=== PATIENT | female | born 1970 | race Caucasian/White ===

== ENCOUNTER → 2017-07-24 | Outpatient (REF) | payer BC | LOC: M SFHCLERA 11:37 | PROVIDERS: ATTEND Dermatology | DX: D21.0 Benign neoplasm of connective and other soft tissue of head, face and neck (principal); D23.61 Other benign neoplasm of skin of right upper limb, including shoulder ==

== ENCOUNTER → 2017-11-24 | Outpatient (CLI) | payer BC | LOC: M ADAMS 10:18 | DX: Z00.00 Encounter for general adult medical examination without abnormal findings (principal); Z13.220 Encounter for screening for lipoid disorders; Z13.29 Encounter for screening for other suspected endocrine disorder ==

== ENCOUNTER → 2017-11-24 | Outpatient (REF) | payer BC ==
[2017-11-24 19:20] LABS: BASO # 0.1 10^3/uL (0.0-0.2); EOS # 0.2 10^3/uL (0.0-0.50); EOS % 2.1 % (0.0-3.0); HEMATOCRIT 43.3 % (36.0-47.0); IMMATURE GRANULOCYTE % 0.3 % (0-3.0); LYMPH # 2.1 10^3/uL (1.5-4.5); LYMPH % 29.3 % (24.0-44.0); MEAN CORPUSCULAR HEMOGLOBIN 29.8 pg (27.0-33.0); MEAN CORPUSCULAR HGB CONC 32.3 g/dl (32.0-36.5); MEAN CORPUSCULAR VOLUME 92.1 fl (80.0-96.0); MONO # 0.4 10^3/uL (0.0-0.8); MONO % 5.5 % (0.0-5.0); NEUTROPHILS # 4.4 10^3/uL (1.8-7.7); NEUTROPHILS % 61.8 % (36.0-66.0); PLATELET COUNT, AUTOMATED 338 10^3/uL (150-450); WHITE BLOOD COUNT 7.1 10^3/uL (4.0-10.0)
[2017-11-24 19:54] LABS: ALBUMIN 4.1 GM/DL (3.2-5.2); ALBUMIN/GLOBULIN RATIO 1.24 (1.00-1.93); ALKALINE PHOSPHATASE 104 U/L (45-117); ALT/SGPT 53 U/L (12-78); ANION GAP 7 MEQ/L (8-16); AST/SGOT 22 U/L (7-37); BILIRUBIN,TOTAL 0.4 MG/DL (0.2-1.0); BLOOD UREA NITROGEN 15 MG/DL (7-18); CALCIUM LEVEL 9.2 MG/DL (8.5-10.1); CARBON DIOXIDE LEVEL 28 MEQ/L (21-32); CHLORIDE LEVEL 105 MEQ/L (98-107); CHOLESTEROL LEVEL 191 MG/DL (<200); CHOLESTEROL RISK RATIO 3.183 (<5); CREATININE FOR GFR 0.72 MG/DL (0.55-1.30); GLOMERULAR FILTRATION RATE > 60.0 (>58); GLUCOSE, FASTING 105 MG/DL (70-100); HDL CHOLESTEROL 60 MG/DL (>40); NON-HDL-C 131 MG/DL; POTASSIUM SERUM 4.6 MEQ/L (3.5-5.1); SODIUM LEVEL 140 MEQ/L (136-145); TOTAL PROTEIN 7.4 GM/DL (6.4-8.2); TRIGLYCERIDES LEVEL 75 MG/DL (<150)
== END ==
LOC: M LABDRWAD 18:44
DX: Z00.00 Encounter for general adult medical examination without abnormal findings (principal)

== ENCOUNTER → 2018-10-30 | Outpatient (CLI) | payer BC ==
--- NOTE | 2018-10-30 21:14 | REP ---
THYROID ULTRASOUND: 10/30/2018. Clinical history: Multiple thyroid nodules, status post FNA dominant right nodule in 2016, negative. Multinodular, Corey's thyroiditis. Comparison: 01/09/2015. Findings: The right lobe measures 4.2 x 2 x 1.6 cm. The left lobe 4.1 x 1.3 x 1 cm. Isthmus has a thickness of 5.5 mm. In the isthmus is a 13.5 x 4.1 x 8.8 mm solid nodule similar to the previous study. There is a dominant complex nodule in the right lobe, probably solid with some cystic areas and measuring 2.2 x 1.8 x 1.4 cm. It may be two adjacent nodules. The appearance is similar to the previous study and size is unchanged. There is a complex 6.4 x 5 x 6 mm nodule in the lower pole and 9 x 7 x 6 mm solid nodule adjacent to it in the lower pole on the right. There is a 2 x 2 mm lower pole nodule on the left. Impression: 1. Multiple nodules with the largest in the right lobe that portion 2.2 x 1.8 x 1.4 cm similar in size and appearance to previous study other nodules also seen and unchanged. Overall thyroid size unchanged. 2. Stable exam. Electronically Signed by Jose Angel Renee MD 10/31/2018 08:51 A
== END ==
LOC: M SMT 08:41
PROVIDERS: ATTEND Internal Medicine
DX: E04.2 Nontoxic multinodular goiter (principal)

== ENCOUNTER → 2019-03-20 | Outpatient (CLI) | payer BC ==
--- NOTE | 2019-03-20 21:24 | REP ---
Clinical: Trauma. Rolled ankle. Technique: AP, lateral, bilateral oblique views of the right foot. Findings: No acute fracture dislocation. Skeletal structures, joint spaces, and surrounding soft tissues appear essentially normal for age. No subcutaneous emphysema or radiodense foreign body. Impression: Age-appropriate right foot radiographs. No acute fracture. Electronically Signed by Ronny Mi MD 03/20/2019 09:17 P
== END ==
LOC: M ADAMS 18:59
PROVIDERS: ATTEND Physician Assistant Medical
DX: M79.671 Pain in right foot (principal)

== ENCOUNTER → 2021-05-12 | Outpatient (CLI) | payer BC ==
[2021-05-12 14:15] LABS: FREE T4 0.95 NG/DL (0.76-1.46); THYROID STIMULATING HORMONE 0.383 uIU/ML (0.358-3.740)
== END ==
LOC: M LAB 12:05
PROVIDERS: ATTEND Internal Medicine Endocrinology, Diabetes & Metabolism
DX: R94.6 Abnormal results of thyroid function studies (principal)

== ENCOUNTER → 2021-05-26 | Outpatient (CLI) | payer BC ==
--- NOTE | 2021-05-26 14:57 | REP ---
INDICATION: GOITER. COMPARISON: Multiple the latest 10/30/2018 TECHNIQUE: Thyroid ultrasound real-time evaluation FINDINGS: The right lobe of the thyroid gland measures 5.1 x 2.4 x 1.9 cm and the left lobe measures 3.9 x 1 x 1 cm. The isthmus measures 3 mm. There are 3 nodules identified. Two are in the right lobe the largest measures 2.2 x 1.4 x 1.6 cm and is somewhat complex. It is predominantly solid. The other nodule measures 8 mm in its greatest dimension. There is a single nodule in the isthmus which measures 1.1 x 0.5 x 1 cm. IMPRESSION: Thyroid nodules as described above. The large nodule in the right lobe has not changed significantly in appearance compared to the prior exam. <Electronically signed by Dakotah Mckee > 05/26/21 [id number]
== END ==
LOC: M RAD 14:09
PROVIDERS: ATTEND Internal Medicine Endocrinology, Diabetes & Metabolism
DX: E04.2 Nontoxic multinodular goiter (principal)

== ENCOUNTER 2021-08-06 14:10 | Emergency (ER) | payer BC ==
[~2021-08-06] VITALS: Ht 160 cm; Wt 90.0 kg
--- OUTSIDE RECORDS SUMMARY | 2021-08-06 14:17 | CCD ---
Author Author [facility] Organization [facility] Address Unknown Phone Unavailable Care Team Providers Care Salesperson Household Appliances Name Role Phone RAHEEL WALLIS Unavailable Unavailable Jack Rust MD Unavailable Unavailable Jack Rust MD Unavailable Unavailable Jack Rust MD Unavailable Unavailable Jack Rust MD Unavailable Unavailable Jack Rust MD Unavailable Unavailable Jack Rust MD Unavailable Unavailable Jack Rust MD Unavailable Unavailable Jack Rust MD Unavailable Unavailable Jack Rust MD Unavailable Unavailable Jack Rust MD Unavailable Unavailable Jack Rust MD Unavailable Unavailable Jack Rust MD Unavailable Unavailable Jack Rust MD Unavailable Unavailable Jack Rust MD Unavailable Unavailable Jack Rust MD Unavailable Unavailable Jack Rust MD Unavailable Unavailable Jack Rust MD Unavailable Unavailable Jack Rust MD Unavailable Unavailable Jack Rust MD Unavailable Unavailable Jack Rust MD Unavailable Unavailable Jack Rust MD Unavailable Unavailable Jack Rust MD Unavailable Unavailable Jack Rust MD Unavailable Unavailable Jack Rust MD Unavailable Unavailable Jack Rust MD Unavailable Unavailable Jack Rust MD Unavailable Unavailable Jack Rust MD Unavailable Unavailable Jack Rust MD Unavailable Unavailable Jack Rust MD Unavailable Unavailable Jack Rust MD Unavailable Unavailable Jack Rust MD Unavailable Unavailable Jack Rust MD Unavailable Unavailable Jack Rust MD Unavailable Unavailable Jack Rust MD Unavailable Unavailable Jack Rust MD Unavailable Unavailable Jack Rust MD Unavailable Unavailable Jack Rust MD Unavailable Unavailable Jack Rust MD Unavailable Unavailable Jack Rust MD Unavailable Unavailable Jack Rust MD Unavailable Unavailable Jack Rust MD Unavailable Unavailable Jack Rust MD Unavailable Unavailable Jack Rust MD Unavailable Unavailable Jack Rust MD Unavailable Unavailable Jack Rust MD Unavailable Unavailable Jack Rust MD Unavailable Unavailable Jack Rust MD Unavailable Unavailable Jack Rust MD Unavailable Unavailable Jack Rust MD Unavailable Unavailable Jack Rust MD Unavailable Unavailable Jack Rust MD Unavailable Unavailable Jack Rsut MD Unavailable Unavailable Jack Rust MD Unavailable Unavailable Jack Rust MD Unavailable Unavailable Jack Rust MD Unavailable Unavailable Jack Rust MD Unavailable Unavailable Jack Rust MD Unavailable Unavailable Jack Rust MD Unavailable Unavailable Jack Rust MD Unavailable Unavailable Jack Rust MD Unavailable Unavailable Jack Rust MD Unavailable Unavailable Jack Rust MD Unavailable Unavailable Jack Rust MD Unavailable Unavailable Jack Rust MD Unavailable Unavailable Jack Rust MD Unavailable Unavailable NENITA CHEUNG Unavailable Unavailable Karina CHOI MD Unavailable Unavailable Karina CHOI MD Unavailable Unavailable Karina CHOI MD Unavailable Unavailable Karina CHOI MD Unavailable Unavailable Karina CHOI MD Unavailable Unavailable Karina CHOI MD Unavailable Unavailable JIMBO, Karina WHITT MD Unavailable Unavailable JIMBO, Karina WHITT MD Unavailable Unavailable JIMBO, Karina WHITT MD Unavailable Unavailable JIMBO, Karina WHITT MD Unavailable Unavailable JIMBO, Karina WHITT MD Unavailable Unavailable JIMBO, Karina WHITT MD Unavailable Unavailable JIMBO, Karina WHITT MD Unavailable Unavailable JIMBO, Karina WHITT MD Unavailable Unavailable JIMBO, Karina WHITT MD Unavailable Unavailable JIMBO, Karina WHITT MD Unavailable Unavailable JIMBO, Karina WHITT MD Unavailable Unavailable JIMBO, Karina WHITT MD Unavailable Unavailable JIMBO, Karina WHITT MD Unavailable Unavailable JIMBO, Karina WHITT MD Unavailable Unavailable JIMBO, Karina WHITT MD Unavailable Unavailable JIMBO, Karina WHITT MD Unavailable Unavailable JIMBO, Karina WHITT MD Unavailable Unavailable JIMBO, Karina WHITT MD Unavailable Unavailable JIMBO, Karina WHITT MD Unavailable Unavailable JIMBO, Karina WHITT MD Unavailable Unavailable JIMBO, Karina WHITT MD Unavailable Unavailable JIMBO, Karina WHITT MD Unavailable Unavailable JIMBO, Karina WHITT MD Unavailable Unavailable JIMBO, Karina WHITT MD Unavailable Unavailable JIMBO, Karina WHITT MD Unavailable Unavailable JIMBO, Karina WHITT MD Unavailable Unavailable JIMBO, Karina WHITT MD Unavailable Unavailable JIMBO, Karina WHITT MD Unavailable Unavailable JIMBO, Karina WHITT MD Unavailable Unavailable JIMBO, Karina WHITT MD Unavailable Unavailable JIMBO, Karina WHITT MD Unavailable Unavailable JIMBO, Karina WHITT MD Unavailable Unavailable JIMBO, Karina WHITT MD Unavailable Unavailable JIMBO, Karina WHITT MD Unavailable Unavailable JIMBO, Karina WHITT MD Unavailable Unavailable JIMBO, Karina WHITT MD Unavailable Unavailable JIMBO, Karina WHITT MD Unavailable Unavailable JIMBO, Karina WHITT MD Unavailable Unavailable JIMBO, Karina WHITT MD Unavailable Unavailable JIMBO, Karina WHITT MD Unavailable Unavailable JIMBO, Karina WHITT MD Unavailable Unavailable JIMBO, Karina WHITT MD Unavailable Unavailable JIMBO, Karina WHITT MD Unavailable Unavailable JIMBO, Karina WHITT MD Unavailable Unavailable JIMBO, Karina WHITT MD Unavailable Unavailable JIMBO, Karina WHITT MD Unavailable Unavailable JIMBO, Karina WHITT MD Unavailable Unavailable JIMBO, Karina WHITT MD Unavailable Unavailable JIMBO, Karina WHITT MD Unavailable Unavailable JIMBO, Karina WHITT MD Unavailable Unavailable JIMBO, Karina WHITT MD Unavailable Unavailable JIMBO, Karina WHITT MD Unavailable Unavailable JIMBO, Karina WHITT MD Unavailable Unavailable JIMBO, Karina WHITT MD Unavailable Unavailable JIMBO, Karina WHITT MD Unavailable Unavailable JIMBO, Karina WHITT MD Unavailable Unavailable JIMBO, Karina WHITT MD Unavailable Unavailable JIMBO, Karina WHITT MD Unavailable Unavailable JIMBO, Karina WHITT MD Unavailable Unavailable JIMBO, Karina WHITT MD Unavailable Unavailable JIMBO, Karina WHITT MD Unavailable Unavailable JIMBO, Karina WHITT MD Unavailable Unavailable JIMBO, Karina WHITT MD Unavailable Unavailable [place] Unavailable [place] Unavailable JIMBO, Karina WHITT MD Unavailable Unavailable JIMBO, Karina WHITT MD Unavailable Unavailable JIMBO, Karina WHITT MD Unavailable Unavailable JIMBO, Karina WHITT MD Unavailable Unavailable JIMBO, Karina WHITT MD Unavailable Unavailable JIMBO, Karina WHITT MD Unavailable Unavailable JIMBO, Karina WHITT MD Unavailable Unavailable JIMBO, Karina WHITT MD Unavailable Unavailable JIMBO, Karina WHITT MD Unavailable Unavailable JIMBO, Karina WHITT MD Unavailable Unavailable JIMBO, Karina WHITT MD Unavailable Unavailable JIMBO, Karina WHITT MD Unavailable Unavailable JIMBO, Karina WHITT MD Unavailable Unavailable JIMBO, Karina WHITT MD Unavailable Unavailable JIMBO, Karina WHITT MD Unavailable Unavailable JIMBO, Karina WHITT MD Unavailable Unavailable JIMBO, Karina WHITT MD Unavailable Unavailable JIMBO, Karina WHITT MD Unavailable Unavailable JIMBO, Karina WHITT MD Unavailable Unavailable JIMBO, Karina WHITT MD Unavailable Unavailable JIMBO, Karina WHITT MD Unavailable Unavailable JIMBO, Karina WHITT MD Unavailable Unavailable JIMBO, Karina WHITT MD Unavailable Unavailable JIMBO, Karina WHITT MD Unavailable Unavailable JIMBO, Karina WHITT MD Unavailable Unavailable JIMBO, aKrina WHITT MD Unavailable Unavailable JIMBO, Karina WHITT MD Unavailable Unavailable JIMBO, Karina WHITT MD Unavailable Unavailable JIMBO, Karina WHITT MD Unavailable Unavailable JIMBO, Karina WHITT MD Unavailable Unavailable JIMBO, Karina WHITT MD Unavailable Unavailable JIMBO, Karina WHITT MD Unavailable Unavailable JIMBO, Karina WHITT MD Unavailable Unavailable JIMBO, Karina WHITT MD Unavailable Unavailable JIMBO, Karina WHITT MD Unavailable Unavailable JIMBO, Karina WHITT MD Unavailable Unavailable JIMBO, Karina WHITT MD Unavailable Unavailable JIMBO, Karina WHITT MD Unavailable Unavailable JIMBO, Karina WHITT MD Unavailable Unavailable JIMBO, Karina WHITT MD Unavailable Unavailable JIMBO, Karina WHITT MD Unavailable Unavailable JIMBO, Karina WHITT MD Unavailable Unavailable JIMBO, Karina WHITT MD Unavailable Unavailable JIMBO, Karina WHITT MD Unavailable Unavailable JIMBO, Karina WHITT MD Unavailable Unavailable JIMBO, Karina WHITT MD Unavailable Unavailable JIMBO, Karina WHITT MD Unavailable Unavailable JIMBO, Karina WHITT MD Unavailable Unavailable JIMBO, Karina WHITT MD Unavailable Unavailable JIMBO, Karina WHITT MD Unavailable Unavailable JIMBO, Karina WHITT MD Unavailable Unavailable JIMBO, Karina WHITT MD Unavailable Unavailable JIMBO, Karina WHITT MD Unavailable Unavailable JIMBO, Karina WHITT MD Unavailable Unavailable JIMBO, Karina WHITT MD Unavailable Unavailable JIMBO, Karina WHITT MD Unavailable Unavailable JIMBO, Karina WHITT MD Unavailable Unavailable JIMBO, Karina WHITT MD Unavailable Unavailable JIMBO, Karina WHITT MD Unavailable Unavailable JIMBO, Karina WHITT MD Unavailable Unavailable JIMBO, Karina WHITT MD Unavailable Unavailable JIMBO, Karina WHITT MD Unavailable Unavailable JIMBO, Karina WHITT MD Unavailable Unavailable JIMBO, Karina WHITT MD Unavailable Unavailable JIMBO, Karina WHITT MD Unavailable Unavailable JIMBO, Karina WHITT MD Unavailable Unavailable JIMBO, Karina WHITT MD Unavailable Unavailable JIMBO, Karina WHITT MD Unavailable Unavailable JIMBO, Karina WHITT MD Unavailable Unavailable [place], Annette Byrne MD Unavailable Unavailable [place], Annette Byrne MD Unavailable Unavailable [place], Annette Byrne MD Unavailable Unavailable [place], Annette Byrne MD Unavailable Unavailable [place], Annette Byrne MD Unavailable Unavailable [place], Annette Byrne MD Unavailable Unavailable [place], Annette Byrne MD Unavailable Unavailable [place], Annette Byrne MD Unavailable Unavailable [place], Annette Byrne MD Unavailable Unavailable [place], Annette Byrne MD Unavailable Unavailable [place], Annette Byrne MD Unavailable Unavailable [place], Annette Byrne MD Unavailable Unavailable FlintropAnnette MD Unavailable Unavailable [place], Annette Byrne MD Unavailable Unavailable [place], Annette Byrne MD Unavailable Unavailable [place], Annette Byrne MD Unavailable Unavailable FlintropAnnette MD Unavailable Unavailable FlintropAnnette MD Unavailable Unavailable [place], Annette Byrne MD Unavailable Unavailable [place], Annette Byrne MD Unavailable Unavailable [place], Annette Byrne MD Unavailable Unavailable [place], Annette Byrne MD Unavailable Unavailable [place], Annette Byrne MD Unavailable Unavailable [place], Annette Byrne MD Unavailable Unavailable FlintropAnnette MD Unavailable Unavailable [place], Annette Byrne MD Unavailable Unavailable [place], Annette Byrne MD Unavailable Unavailable [place], Annette Byrne MD Unavailable Unavailable [place], Annette Byrne MD Unavailable Unavailable [place], Annette Byrne MD Unavailable Unavailable [place], Annette Byrne MD Unavailable Unavailable [place], Annette Byrne MD Unavailable Unavailable [place], Annette Byrne MD Unavailable Unavailable [place], Annette Byrne MD Unavailable Unavailable [place], Annette Byrne MD Unavailable Unavailable [place], Annette Byrne MD Unavailable Unavailable [place], Annette Byrne MD Unavailable Unavailable [place], Annette Byrne MD Unavailable Unavailable [place], Annette Byrne MD Unavailable Unavailable [place], Annette Byrne MD Unavailable Unavailable [place], Annette Byrne MD Unavailable Unavailable [place], Annette Byrne MD Unavailable Unavailable [place], Annette Byrne MD Unavailable Unavailable [place], Annette Byrne MD Unavailable Unavailable [place], Annette Byrne MD Unavailable Unavailable [place], Annette Byrne MD Unavailable Unavailable [place], Annette Byrne MD Unavailable Unavailable [place], Annette Byrne MD Unavailable Unavailable [place], Annette Byrne MD Unavailable Unavailable [place], Annette Byrne MD Unavailable Unavailable [place], Annette Byrne MD Unavailable Unavailable [place], Annette Byrne MD Unavailable Unavailable [place], Annette Byrne MD Unavailable Unavailable [place], Annette Byrne MD Unavailable Unavailable [place], Annette Byrne MD Unavailable Unavailable [place], Annette Byrne MD Unavailable Unavailable [place], Annette Byrne MD Unavailable Unavailable [place], Annette Byrne MD Unavailable Unavailable [place], Annette Byrne MD Unavailable Unavailable [place], Annette Byrne MD Unavailable Unavailable [place], Annette Byrne MD Unavailable Unavailable [place], Annette Byrne MD Unavailable Unavailable [place], Annette Byrne MD Unavailable Unavailable [place], Annette Byrne MD Unavailable Unavailable [place], Annette Byrne MD Unavailable Unavailable [place], Annette Byrne MD Unavailable Unavailable [place], Annette Byrne MD Unavailable Unavailable [place], Annette Byrne MD Unavailable Unavailable [place], Annette Byrne MD Unavailable Unavailable [place], Annette Byrne MD Unavailable Unavailable [place], Annette Byrne MD Unavailable Unavailable [place], Annette Byrne MD Unavailable Unavailable [place], Annette Byrne MD Unavailable Unavailable [place], Annette Byrne MD Unavailable Unavailable [place], Annette Byrne MD Unavailable Unavailable [place], Annette Byrne MD Unavailable Unavailable [place], Annette Byrne MD Unavailable Unavailable Sal Escobar Unavailable Unavailable Re-disclosure Warning The records that you are about to access may contain information from federally-assisted alcohol or drug abuse programs. If such information is present, then the following federally mandated warning applies: This information has been disclosed to you from records protected by federal confidentiality rules (42 CFR part 2). The federal rules prohibit you from making any further disclosure of this information unless further disclosure is expressly permitted by the written consent of the person to whom it pertains or as otherwise permitted by 42 CFR part 2. A general authorization for the release of medical or other information is NOT sufficient for this purpose. The Federal rules restrict any use of the information to criminally investigate or prosecute any alcohol or drug abuse patient.The records that you are about to access may contain highly sensitive health information, the redisclosure of which is protected by Article 27-F of the [facility] Public Health law. If you continue you may have access to information: Regarding HIV / AIDS; Provided by facilities licensed or operated by the [facility] Office of Mental Health; or Provided by the [facility] Office for People With Developmental Disabilities. If such information is present, then the following [facility] mandated warning applies: This information has been disclosed to you from confidential records which are protected by state law. State law prohibits you from making any further disclosure of this information without the specific written consent of the person to whom it pertains, or as otherwise permitted by law. Any unauthorized further disclosure in violation of state law may result in a fine or prison sentence or both. A general authorization for the release of medical or other information is NOT sufficient authorization for further disc losure. Family History Family Member Name Family Member Gender Family Member Status Date o f Status Description Data Source(s) Unknown Unknown Problem [facility] ([facility]) Unknown Unknown Problem [facility] ([facility]) Unknown Unknown Problem [facility] ([facility]) Unknown Unknown Problem [facility] ([facility]) Encounters Encounter Providers Location Date Indications Data Source(s ) Outpatient Attender: Raheel WallisAttender: RAHEEL WALLIS 11/12/2021 12:00:00 AM [facility] Outpatient Attender: NENITA CHEUNG 11/11/2021 12:00:[address] [facility] Outpatient Attender: Sal LEBLANC 11:36:06 AM EDT - 08/01/2021 12:53:16 PM EDT [facility] ([facility]) Outpatient Attender: Chavez Valdes MDReferrer: JOSE EDUARDO MELENDEZ MD [email or web address] 07/27/2021 10:15:00 AM EDT - 07/27/2021 11:59:00 PM EDT [facility] Patient discharged. Outpatient Attender: JOSE EDUARDO CHOI MD [id number] 2020 01:02:15 PM EDT - 06/17/2021 01:57:56 PM EDT [facility] Outpatient [id number] 06/08/2021 11:43:16 AM EDT [facility] Outpatient Referrer: JOSE EDUARDO CHOI MD 05/14/2021 01:23:36 P M EDT [facility] Outpatient Referrer: NENITA CHEUNG 11/25/2020 12:00:[address] [facility] Outpatient Attender: NENITA JONATAN [id number] 11/11/2020 12:00:00 AM [facility] Outpatient Attender: Medina Rust MD [place] 08/31/2020 08:40:0 0 AM EST [facility] ([facility]) Immunizations Vaccine Date Status Description Data Source(s) 01/13/2021 12:00:00 AM EDT completed <td I D="[id number]">Covid-19 (Pfizer)</td><td>01/13/2021, 12/23/2020</td><td></td> [facility] COVID-19 VACCINE Pfizer 01/13/2021 12:00:00 AM EDT completed [facility] Vaccine Series Complete: YESThis Data wa s Submitted to [facility] Via [employer]. 12/23/2020 12:00:00 AM EST completed <td I D="[id number]">Covid-19 (Pfizer)</td><td>01/13/2021, 12/23/2020</td><td></td> [facility] COVID-19 VACCINE Pfizer 12/23/2020 12:00:00 AM EST completed [facility] Vaccine Series Complete: NOThis Data was Submitted to [facility] [employer]. Influenza Virus Vaccine, Quadrivalent (Cciiv4), Derive d From Cell 08/04/2020 11:25:00 AM EDT completed [facility] ([facility]) This CVX code allows reporting of a vacc ination when formulation is unknown (for example, when recording a Influenza vaccination when noted on a vaccination card) 07/25/2020 12:00:00 AM EDT completed <td ID="immun [id number]">Influenza (Unspecified)</td><td>07/25/2020, 10/28/2017</td><td></td> [facility] Medications Medication Brand Name Start Date Product Form Dose Route Admi nistrative Instructions Pharmacy Instructions Status Indications Reaction Description Data Source(s) benzonatate 100 MG Oral Capsule BENZONATATE 08/01/2021 12:00:00 AM EDT capsule 30 TAKE ONE CAPSULE BY MOUTH THREE TIMES A DAY TAKE ONE CAPSULE BY MOUTH THREE TIMES A DAY SOLD: 08/01/2021 [facility] 2 % 08/01/2021 12:00:00 AM EDT solution 200 TAKE 1 TEASPOONFUL (5 ML) BY MOUTH 6 TIMES DAILY FOR 5 DAYS DIRECTED TAKE 1 TEASPOONFUL (5 ML) BY MOUTH 6 TIMES DAILY FOR 5 DAYS DIRECTED SOLD: 08/01/2021 [facility] 24 HR Metformin hydrochloride 500 MG Extended Release Oral T ablet METFORMIN HCL 07/30/2021 12:00:00 AM EDT tablet extended release 24 hr 180 TAKE ONE TABLET BY MOUTH TWICE A DAY WITH MEALS TAKE ONE TABLET BY MOUTH TWICE A DAY WITH MEALS SOLD: 08/01/2021 [facility] 40 mg 05/20/2021 12:00:00 AM EDT capsule,delayed release (DR/EC) 30 TAKE ONE CAPSULE BY MOUTH EVERY DAY TAKE ONE CAPSULE BY MOUTH EVERY DAY SOLD: 05/24/2021 [facility] 40 mg 05/20/2021 12:00:00 AM EDT capsule,delayed release (DR/EC) 30 TAKE ONE CAPSULE BY MOUTH EVERY DAY TAKE ONE CAPSULE BY MOUTH EVERY DAY SOLD: 07/01/2021 [facility] 40 mg 05/20/2021 12:00:00 AM EDT capsule,delayed release (DR/EC) 30 TAKE ONE CAPSULE BY MOUTH EVERY DAY TAKE ONE CAPSULE BY MOUTH EVERY DAY SOLD: 08/01/2021 [facility] 500 mg 04/09/2021 12:00:00 AM EDT tablet 180 TAKE ONE TABLET BY MOUTH TWICE A DAY WITH MEALS TAKE ONE TABLET BY MOUTH TWICE A DAY WITH MEALS SOLD: 04/15/2021 [facility] 500 mg 12/23/2020 12:00:00 AM EST tablet extended release 24 hr 180 TAKE ONE TABLET BY MOUTH TWICE A DAY WITH MEALS TAKE ONE TABLET BY MOUTH TWICE A DAY WIT H MEALS SOLD: 12/25/2020 [facility] 500 mg 09/25/2020 12:00:00 AM EST tablet extended release 24 hr 180 TAKE ONE TABLET BY MOUTH TWICE A DAY WITH MEALS TAKE ONE TABLET BY MOUTH TWICE A DAY WIT H MEALS SOLD: 10/12/2020 [facility] 40 mg 08/24/2020 12:00:00 AM EST capsule,delayed release (DR/EC) 30 TAKE ONE CAPSULE BY MOUTH EVERY DAY TAKE ONE CAPSULE BY MOUTH EVERY DAY SOLD: 11/20/2020 [facility] 40 mg 08/24/2020 12:00:00 AM EST capsule,delayed release (DR/EC) 30 TAKE ONE CAPSULE BY MOUTH EVERY DAY TAKE ONE CAPSULE BY MOUTH EVERY DAY SOLD: 10/12/2020 [facility] 40 mg 08/24/2020 12:00:00 AM EST capsule,delayed release (DR/EC) 30 TAKE ONE CAPSULE BY MOUTH EVERY DAY TAKE ONE CAPSULE BY MOUTH EVERY DAY SOLD: 08/24/2020 [facility] 40 mg 08/24/2020 12:00:00 AM EST capsule,delayed release (DR/EC) 30 TAKE ONE CAPSULE BY MOUTH EVERY DAY TAKE ONE CAPSULE BY MOUTH EVERY DAY SOLD: 03/05/2021 [facility] 40 mg 08/24/2020 12:00:00 AM EST capsule,delayed release (DR/EC) 30 TAKE ONE CAPSULE BY MOUTH EVERY DAY TAKE ONE CAPSULE BY MOUTH EVERY DAY SOLD: 12/25/2020 [facility] 40 mg 08/24/2020 12:00:00 AM EST capsule,delayed release (DR/EC) 30 TAKE ONE CAPSULE BY MOUTH EVERY DAY TAKE ONE CAPSULE BY MOUTH EVERY DAY SOLD: 04/15/2021 [facility] 40 mg 08/24/2020 12:00:00 AM EST capsule,delayed release (DR/EC) 30 TAKE ONE CAPSULE BY MOUTH EVERY DAY TAKE ONE CAPSULE BY MOUTH EVERY DAY SOLD: 01/28/2021 [facility] 2.5 % 06/29/2020 12:00:00 AM EDT cream 28 APPLY TO AXILLA TWO TIMES A DAY FOR 2 WEEKS APPLY TO AXILLA TWO TIMES A DAY FOR 2 WEEKS SOLD: 10/12/2020 [facility] 2.5 % 06/29/2020 12:00:00 AM EDT cream 28 APPLY TO AXILLA TWO TIMES A DAY FOR 2 WEEKS APPLY TO AXILLA TWO TIMES A DAY FOR 2 WEEKS SOLD: 07/01/2020 [facility] 17.5-3.13-1.6 gram 06/25/2020 12:00:00 AM EDT recon soln 354 USE DIRECTED USE DIRECTED SOLD: 07/01/2020 [facility] Clobetasol Propionate 0.5 MG/ML Topical Cream 0.05 % CLOBETA BRANDIE PROPIONATE 06/25/2020 12:00:00 AM EDT cream 60 APPLY TO HANDS TWO TIMES A DAY, NOT TO FACE, GROIN OR SKIN FOLDS APPLY TO HANDS TWO TIMES A DAY, NOT TO F SOCO, GROIN OR SKIN FOLDS SOLD: 10/12/2020 [facility] Clobetasol Propionate 0.5 MG/ML Topical Cream 0.05 % CLOBETA BRANDIE PROPIONATE 06/25/2020 12:00:00 AM EDT cream 60 APPLY TO HANDS TWO TIMES A DAY, NOT TO FACE, GROIN OR SKIN FOLDS APPLY TO HANDS TWO TIMES A DAY, NOT TO F SOCO, GROIN OR SKIN FOLDS SOLD: 07/01/2020 [facility] 500 mg 11/25/2019 12:00:00 AM EST tablet extended release 24 hr 120 TAKE ONE TABLET BY MOUTH TWICE A DAY WITH MEALS TAKE ONE TABLET BY MOUTH TWICE A DAY WIT H MEALS SOLD: 08/10/2020 [facility] Naproxen 500 MG Oral Tablet naproxen (NAPROSYN) 500 MG tablet naproxen (NAPROSYN) 500 MG tablet 500 mg Oral aborted Take 500 mg by mouth as needed [facility] Insurance Providers Payer name Policy type / Coverage type Policy ID Covered libertarian ID Covered libertarian's relationship to sanchez Policy Sanchez Plan Information BCBS Ppo Health Maintenance Organization (HMO) [id number] Se lf [id number] Spouse [id number] EXCELLUS BCBS [id number] Leonor VYS [id number] EXCELLUS H [id number] Spouse [id number] EXCELLUS H [id number] Spouse [id number] EXCELLUS BCBS [id number] Unk VYS [id number] [place] of [place] Other 0 [id number] Famil y Dependent Gigi Sen 0 [employer]CELLUS BCBS [id number] Spo VYA EXCELLUS BCBS [id number] EXCELLUS BCBS [id number] Spo [id number] Excellus Blue Cross and Blue Shield [place] Blue Cross/B lue Shield [id number] Self [id number] [place] PPO 302/307 [id number] HU2 [id number] [place] PPO 302/307 [id number] BC[employer] [id number] Family Dependent [id number] [employer]CE[employer] BCBS B [id number] O [id number] [employer] [id number] Family Dependent [id number] [place] PPO 302/307 [id number] HU2 [id number] [place] PPO 302/307 [id number] HU2 [id number] [place] PPO 302/307 [id number] Problems, Conditions, and Diagnoses Code Display Name Description Problem Type Effective Dates Data Source(s) G47.9 Sleep disorder, unspecified Sleep disorder, unspecifie d Diagnosis 06/17/2021 01:02:15 PM EDT [facility] 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 single thyroid nodule Diagnosis 06/17/2021 01:02:15 PM EDT [facility] Z00.00 Encounter for general adult medical examination without abnormal findings Encounter for general adult medical exam Diagnosis 021 01:02:15 PM EDT [facility] [id number] Flatulence, eructation and gas pain Flat ulence, eructation and gas pain Problem 08/31/2020 12:00:00 AM EST [facility] ([facility] [id number] Atopic dermatitis Atopic dermatitis Problem 08/31/2020 12:00:00 AM EST [facility] ([facility]) Surgeries/Procedures Procedure Description Date Indications Data Source(s) Skin Test Scratch # Of Units ____ 08/31/2020 12:00:00 AM EST [facility] ([facility]) Results ID Date Data Source [id number] 06/21/2021 11:42:50 AM [facility]T [facility]FORMATIONPatient MRN Name Date of Age Gend*PT [id number] Destiny Sen 1970 50 years F ---PT Location Admission Date/Time Visit ID Attending Provider --- --- --- --- EPI ID CSN Admitting Provider [id number] ---Assessment/Plan:Diagnoses and all orders for this visit:Physical exam, annual (Primary)Thyroid noduleComments:thyroid nodules, largest of which was biopsied 2015 benign goiter, latestultrasound through [facility] ([place] [place]) 05/26/21Orders:- Ultrasound thyroid; FutureSleep disturbance- Ambulatory referral to Sleep Study50 year old woman doing well overall. BMI is 35Encouraged routine exercise, USPSTF guidelines recommend 150 + minutes per weekof aerobic activity.Reviewed lab results from 06/08/21, CBC, CMP, lipid panel, TSH, vitamin D, HBA1C.Thyroid Nodule; Ultrasound thyroid ordered for f/u in 6 months.Fatigue, sleep disturbance; reviewed lab results, TSH unremarkable. Patient withcomplaint of fatigue, signs and symptoms c/w ANGELITA, referral to Sleep Studyplaced.Patient was counseled on the following:Caffeine/sodium intake in moderation, Healthy diet and regular exercise, Sleephygeine, Stress management, Behavior modific ation in regards to tobacco,alcohol, drugs, sexual activity, abstinence/safe sex (as appropriate),Immunizations in prevention of disease, Age appropriate screening exams, HealthMaintenance ListHealth MaintenanceTopic Date Due HIV Testing Offered (13-64 y/o) Never done Zoster Recombinant Vaccine (RZV) (Shingrix) (1 of 2) Never done PHQ Depression Screening 10/16/2020 Influenza Vaccine 05/16/2021 Mammogram 05/27/2022 TSH Level 06/08/2022 PAP SMEAR 07/01/2023 Tetanus Vaccines (2 - Td) 05/25/2030 Colon Cancer Screening Colonoscopy 08/19/2030 COVID-19 Vaccine Completed Pneumococcal Vaccine Aged Out Mammogram Historical Discontinued, Safety issues- Helmets, seat belts, smoke and carbon monoxide detectors,firearms precautions and Dental HealthThe 10-year ASCVD risk score (Mari ROSALES Jr., et al., 2013) is: 1.2% Values used to calculate the score: Age: 50 years Sex: Female Is Non- : No Diabetic: No Tobacco smoker: No Systolic Blood Pressure: 136 mmHg Is BP treated: No HDL Cholesterol: 71 mg/dL Total Cholesterol: 225 mg/dLFollow Up Return in about 6 months (around 12/15/2021).Subjective:Patient ID: Destiny Sen is a 50 years female.Chief ComplaintPatient presents with Annual ExamHPIWell Adult PhysicalPatient presents for an annual physical ex am. Lab tests 06/08/21, here to reviewresults.She has been experiencing rashes on her hand. Symptoms include irritations.Since having hair thinning, she started using different shampoo with somesuccess.Fatigue: complains of low energy, daytime somnolence, falls asleep easily.Patient states she has low energy and sometimes feels like she could sleep claudy long.Patient snores, and states she grinds her teeth when sleeps. States most of thetime feels like she needs a nap. The last 4 months it has been very difficultfor her to get out of bed.Thyroid nodule; Multiple thyroid nodules, largest was biopsied in 2014.Ultrasound through [facility] (study performed in [place]) on 05/26/21.Do you take any herbs or supplements that were not prescribed by a doctor? noAre you taking calcium supplements? noAre you taking aspirin daily? noGU History:[id number] with oral surgery technician.The following portions of the patient's history were reviewed and updated asappropriate: allergies, current medications were reconciled with dischargemedications if applicable, past family history, past medical history, pastsocial history, past surgical history, problem list and nutrition. Encouragedregular exercise and healthy diet. BMI management plan discussed..Past Medical History:Diagnosis Date Basal cell carcinoma 2000 Leg leg HypothyroidismPast Surgical History:Procedure Laterality Date BASAL CELL CARCINOMA EXCISION Left CALF BUNIONECTOMY SECTION X3 CHOLECYSTECTOMY CORRECTION HAMMER TOE DILATION AND CURETTAGE OF UTERUSAllergiesAllergen Reactions Morphine And Related Other PDS SUTURESocial HistorySocioeconomic History Marital status: Spouse name: Not on file Number of children: Not on file Years of education: Not on file Highest education level: Not on fileOccupational History Not on fileTobacco Use Smoking status: Never Smoker Smokeless tobacco: Never UsedSubstance and Sexual Activity Alcohol use: Yes Alcohol/week: 1.0 standard drink Types: 1 Glasses of wine per week Comment: per month Drug use: No Sexual activity: Not on fileOther Topics Concern Bike Helmet Not Asked History of Falls Not Asked Self-Exams Yes Caffeine Concern Not Asked Hobby Hazards Not Asked Sleep Concern Not Asked Daily Calcium Supplement Not Asked Lead Exposure Not Asked Special Diet Not Asked Daily Vitamin D Supplement Not Asked Service Not Asked Stress Concern Not Asked Domestic Violence in home Not Asked Radon exposure Not Asked Weight Concern Not Asked Exercise Yes Seat Belt Yes Well water Yes Firearms in home Not AskedSocial History Narrative Not on fileSocial Determinants of HealthFinancial Resource Strain: Difficulty of Paying Living Expenses:Food Insecurity: Worried About Running Out of Food in the Last Year: Ran Out of Food in the Last Year:Transportation Needs: Lack of Transportation (Medical): Lack of Transportation (Non-Medical):Physical Activity: Days of Exercise per Week: Minutes of Exercise per Session:Stress: Feeling of Stress :Social Connections: Frequency of Communication with Friends and Family: Frequency of Social Gatherings with Friends and Family: Attends Baptism Services: Active Member of Clubs or Organizations: Attends Club or Organization Meetings: Marital Status:Intimate Partner Violence: Fear of Current or Ex-Partner: Emotionally Abused: Physically Abused: Sexually Abused:History reviewed. No pertinent family history.Review of SystemsConstitutional: Positive for fatigue. Negative for appetite change, chills,fever and unexpected weight change.HENT: Negative for congestion, ear pain, postnasal drip, sinus pressure and sorethroat.Respiratory: Negative for cough and shortness of breath.Cardiovascular: Negative for chest pain, palpitations and leg swelling.Gastrointestinal: Negative for abdominal pain, constipation, diarrhea, nauseaand vomiting.Endocrine: Negative for polydipsia, polyphagia and polyuria.Genitourinary: Negative for dysuria, frequency and urgency.Musculoskeletal: Negative for arthralgias and neck pain.Skin: Negative for rash.Hematological: Negative for adenopathy.Psychiatric/Behavioral: Negative for confusion. The patient is notnervous/anxious.Objective:Vitals: BP 136/84 (BP Location: Left upper arm, Patient Position: Sitting) |Pulse 72 | Temp 96.5 F (Tympanic) | Resp 16 | Ht 1.588 m (5' 2.5") | Wt89.8 kg (198 lb) | LMP 01/07/2015 | SpO2 96% | BMI 35.64 kg/m Physical ExamVitals and nursing note reviewed.Constitutional: Appearance: She is well-developed. Comments: Pleasant 50 year old woman, no apparent distressHENT: Head: Normocephalic and atraumatic. Right Ear: Tympanic membrane, ear canal and external ear normal. Left Ear: Tympanic membrane, ear canal and external ear normal. Nose: Nose normal. Mouth/Throat: Mouth: Mucous membranes are moist. Pharynx: No oropharyngeal exudate.Eyes: General: No scleral icterus. Extraocular Movements: Extraocular movements intact. Conjunctiva/sclera: Conjunctivae normal. Pupils: Pupils are equal, round, and reactive to light.Neck: Thyroid: No thyromegaly.Cardiovascular: Rate and Rhythm: Normal rate and regular rhythm. Pulses: Normal pulses. Heart sounds: Normal heart sounds. No murmur heard.Pulmonary: Effort: Pulmonary effort is normal. Breath sounds: Normal breath sounds. No wheezing.Abdominal: General: Bowel sounds are normal. There is no distension. Palpations: Abdomen is soft. Tenderness: There is no abdominal tenderness.Genitourinary: Comments: CBE and pelvic exam deferred to gynMusculoskeletal: General: Normal range of motion. Cervical back: Neck supple.Lymphadenopathy: Cervical: No cervical adenopathy.Skin: General: Skin is warm and dry. Capillary Refill: Capillary refill takes less than 2 seconds.Neurological: Mental Status: She is alert and oriented to person, place, and time. Mentalstatus is at baseline. Cranial Nerves: No cranial nerve deficit. Sensory: No sensory deficit. Motor: No weakness. Gait: Gait normal. Deep Tendon Reflexes: Reflexes normal.Psychiatric: Mood and Affect: Mood normal. Behavior: Behavior normal. Thought Content: Thought content normal. Judgment: Judgment normal.I, Pako Phelps , am acting as a scribe for Jose Eduardo Choi MD, whopersonally examined the patient and directed the documentation in this note on06/17/2021 1:20 PM. The documentation was reviewed and edited by Jose Eduardo Anne MD. Name Value Range Interpretation Code Description Data Blanca rce(s) Supporting Document(s) ID Date Data Source [id number] 06/08/2021 11:49:[address] [facility] Name Value Range Interpretation Code Description Data Blanca rce(s) Supporting Document(s) WBC 6.6 K/uL 4.2-10.4 [facility] Neutrophil % 61.8 %N 37.0-82.2 [facility] Lymphocyte % 29.4 %L 10.6-50.6 [facility] Monocyte % 5.1 %M 2.8-13.0 [facility] Eosinophil % 2.0 %E 0.0-6.7 [facility] Basophil % 1.6 %B 0.2-1.8 [facility] Neutrophil # 4.1 K/uL 1.8-7.8 [facility] Lymphocyte # 1.9 K/uL 1.0-4.1 [facility] Monocyte # 0.3 K/uL 0.2-1.0 [facility] Eosinophil # 0.1 K/uL 0.0-0.4 [facility] Basophil # 0.1 K/uL 0.0-0.2 [facility] RBC 4.69 M/uL 4.07-5.29 [facility] Hemoglobin 14.4 g/dL 12.6-16.0 [facility] Hematocrit 43.2 % 35.2-47.0 [facility] MCV 92 fL 80-97 [facility] MCH 30.7 pg 28.2-32.4 [facility] MCHC 33.4 g/dL 32.0-36.0 [facility] RDW 11.5 % 10.7-15.1 [facility] Platelets 386 K/uL 150-450 [facility] ns ID Date Data Source [id number] 06/08/2021 11:49:00 AM EDT [facility] Name Value Range Interpretation Code Description Data Blanca rce(s) Supporting Document(s) Glucose 103 mg/dL 67-106 [facility] Urea 12.0 mg/dL 5.0-25.0 [facility] Creatinine 0.6 mg/dL 0.5-1.2 [facility] BUN/Creatinine Ratio 20.0 13.0-22.0 [facility] eGFR 105.8 mL/1.73m [facility] Sodium 141 mmol/L 137-147 [facility] Potassium 4.3 mmol/L 3.7-5.4 [facility] Chloride 102 mmol/L 95-107 [facility] Carbon Dioxide 26 mmol/L 21-30 [facility] Anion Gap 13.0 7.0-16.0 [facility] Calcium 10.0 mg/dL 8.8-10.4 [facility] AST 19 U/L 1-41 [facility] ALT 24 U/L 1-43 [facility] Alkaline Phosphatase 92 U/L 36-126 [facility] Total Bilirubin 0.3 mg/dL 0.0-1.2 [facility] Albumin 4.1 g/dL 3.3-4.5 [facility] Total Protein 7.1 g/dL 6.1-8.1 [facility] icians Globulin 3.0 g/dL 2.2-4.0 [facility] ns A/G Ratio 1.4 0.9-1.7 [facility] ALP now traceable to the IFCC procedure at 37 ID Date Data Source [id number] 06/08/2021 11:49:[address] [facility] Name Value Range Interpretation Code Description Data Blanca rce(s) Supporting Document(s) Cholesterol 225 mg/dL 100-199 [facility] Triglycerides 72 mg/dL 25-160 [facility] HDL 71 mg/dL 40-[address] [facility] LDL (calculated) 140 mg/dL 0-[address] [facility] VLDL 14.4 mg/dL 6.0-40.0 [facility] Chol/HDL Ratio 3.17 [facility] Values listed are Risk Dependent: ID Date Data Source [id number] 06/08/2021 11:49:[address] [facility] Name Value Range Interpretation Code Description Data Blanca rce(s) Supporting Document(s) Ultra hTSH II 0.60 uIU/mL 0.35-4.30 [facility] Launch of Elecsys TSH assay on to mitigate biotin interference for patients taking biotin in serum concentrations up to 1200 ng/mL. Please note new reference range. ID Date Data Source [id number] 06/08/2021 11:49:[address] [facility] Name Value Range Interpretation Code Description Data Blanca rce(s) Supporting Document(s) VITAMIN_D 49.3 ng/ml 30.0-100.0 [facility] Literature Review: ID Date Data Source [id number] 06/08/2021 11:49:[address] [facility] Name Value Range Interpretation Code Description Data Blanca rce(s) Supporting Document(s) Hemoglobin A1c 6.5 % [facility] Effective 08/28/2019 testing performed o n the Variant II Turbo. ID Date Data Source [id number] 05/27/2021 04:04:00 PM EDT [facility] DIGI MARTI MAMMOGRAM SCREEN BL W CAD W TOMOSYNTHESISCLINICAL HISTORY: Screening. Last Clinical Breast Exam: 2019 Tyrer-Cuzick Model 10-year risk: 2.1% (Average: 2.7%) Tyrer-Cuzick Model lifetime risk: 9.0% (Average: 11.4%)COMPARISON: 04/06/2020, 04/03/2019, 11/28/2017, and 12/10/2015.TECHNIQUE: Craniocaudal and oblique views were obtained digitally. Craniocaudal views were reviewed by CAD. Digital Breast Tomosynthesis was obtained.FINDINGS: There are scattered fibroglandular densities.No dominant mass, suspicious microcalcifications, architectural distortion or skin/nipple thickening or retraction is seen.There are no significant changes compared to the prior study/studies.IMPRESSION: Negative mammogram with Digital Breast Tomosynthesis.A follow up mammogram is recommended in one year as per the [employer].ACR Breast Density: B- Scattered fibroglandular densityCLASSIFICATION: BI-RADS 1 - NEGATIVEResultCode: BR 1 BDISCLAIMER: According to the [employer] and the [employer], any patient with a lifetime risk assessment greater than 20% or patients with dense breasts (heterogeneously or extremely dense), m ay benefit from additional screening tests for breast cancer. Further screening tests for patients with dense breasts (heterogeneously or extremely dense) should be based upon the patient's breast cancer risk status. All patients, having their mammogram with [facility], with a lifetime risk assessment greater than 20% or with dense breasts, will be given the opportunity to meet with our certified breast health navigator to discuss their risk and further imaging options.Further screening test includes Ultrasound and MR (Magnetic Resonance) imaging.Dictated by: DA CRANE M.D. on 05/27/2021lec tronically Signed by: DA CRANE M.D. on 05/27/2021 04:45 PMTranscribed by: otto on 05/27/2021 04:45 PMCDS G code: , ,CDS Modifier: , ,cc:GUEVARA ALDANA MD Name Value Range Interpretation Code Description Data Blanca rce(s) Supporting Document(s) ID Date Data Source [id number] 11/11/2020 11:13:20 AM [facility] Name Value Range Interpretation Code Description Data Blanca rce(s) Supporting Document(s) Progress Note [facility] DEJAHc2bMnTXBsWv80/QKDnfOGRkv0LtYZtxAUc6YJfiZKTrP1HfZEY6qQ2wTVI2UPpTDpWcYbQdTZL2 lbm [file] q3QJ9ZJIOJV9SWDw== ID Date Data Source [id number] 11/11/2020 11:13:15 AM [facility] Name Value Range Interpretation Code Description Data Blanca rce(s) Supporting Document(s) Progress Note [facility] VMDMIb8yPgYOZyYm21/ZSZtfZJLkt6HmQEcfESj0TWxyLFPfI9ViENR7bL1bDNL6FMfJDrYfTcTaXBT4 lbm [file] AgICAgICAgICAgICAgICAgICAgICAgICAgICAgICAg NNAfNFVuJWEcPS7XQITqFPBsJNCxIOKtFJVqBMFpJFDkDTVsGRSeTJKhEUWrDEUfHZDeXNNkKGMzUXVs LPFiNHFnWBSdBZMeMVBkNSZrQZNcLALrHNLcGXDcPCOiCVFcUPSrEPMzEZKgVOLqFJByGD4ZVJEqZBMz ICAgICAgICAgICAgICAgICAgICAgICAgICAgICAgIC AgICAgICAgICAgICAgICAgICAgICAgICAgICAgICAgICAgICAgICAgICAgICAgICAgICAgICAgICAgIC DdPY1CGHAqHGHrLTKuQXNoLTWhEIBzILOjRRTyKGPgPKPuARYeXWDjLCGnLRSqVITvGNAoXULfPGImSE AgICAgICAgICAgICAgICAgICAgICAgICAgICAgICAg UUTtOTZbXPYiIQIiYF2EXLXdMJSsAMGdAVBaKFOsWKGzVDNqQJViKCBzQHKeOOKsUHYfMEMoXAEsCNFh HZBhATDmXDJfOAUxGGDpWWTmPMQbFALnKXOkIXUhGFDsMZClQDCcADOmCETzNNKdGCPaLEYaWU8GRSDj ICAgICAgICAgICAgICAgICAgICAgICAgICAgICAgIC AgICAgICAgICAgICAgICAgICAgICAgICAgICAgICAgICAgICAgICAgICAgICAgICAgICAgICAgICAgIC LeQXVbLT6QXYQsGILhEKFaMSHdLFTjVYJsNEQbSAPzCDJrWOCaOCZsMODqJJQbWREvZCOyEWQnNTLaGR AgICAgICAgICAgICAgICAgICAgICAgICAgICAgICAg XWOxSQIlVHStYNPwNOTcTN2XGZHnUARqWEIcRPBrFKRuSZWwBELaIPCwPPBaGJNzIBZjRJKoESIhDDUw SSOhWSBpDZGaXRJeYXQaWLJiOHDoEWUnMYTeBJNjDEJeSCGvBPDgZAXsIJOzUZUmNXTeIVXpLCRrTX8P ICAgICAgICAgICAgICAgICAgICAgICAgICAgICAgIC AgICAgICAgICAgICAgICAgICAgICAgICAgICAgICAgICAgICAgICAgICAgICAgICAgICAgICAgICAgIC OgFUVjHQCnTD7OETCbOWOmRLTsHBReJSYmWTKiBQAjCCTbNKLwAKWvDMPwZXUsSTBjQOUdCDDiZNKaGG AgICAgICAgICAgICAgICAgICAgICAgICAgICAgICAg RWCdVNPhCIFnGQRfBXQxRHDrGM8QHY47uOZqg1B8FITjLD4ynml/Bb3NEHgjamPqqHEzDO8EIqXsXW9l ij2OFeVhTJ1auz9JNQpITzGsW6U4vCBiATEcUETUTkLnD13yNVaiPc67WEqxNYIvOvBxYEf3Sw1PTdLg F1kxNGHdHfJ5GBVxYmDiLLxqQP4Hf8QzfITgFUc+Pg 6CXP2zw5AcISajVZFiJK5bgr9XZJkQQeEsH2TwnlG9YWJwKDPdXb9KIUZkZPEduLGmUWRpMSGZKjGiO5 RjzF22AMHNUy7+LBujruXwHiwDGvOfLWYop8DnYIt5BU1MRTMtSGg0uCWdQRLyK5Dek3UxNl54RCKuXt gdZAxiFVPIIGh0yiJ9BKPHBU2mVHSqVU6fKr0kUYCr KKO8AzGnDLXUAR5KIHThPQCvsJBzGAXwQDMVYC5FGGskJWE8PGEbzrSqgESlLLdjBV1ELOBixkJpRBxm MCBSDQo+Ue6RYJ8hy6AgBUhuQMHoBX0btx6AABwOAfKyR2H5yMDlX7Q7XFtjRz4OVAAyUOLeLVumXNZK PPkqVZ4QXC5ipqH2PS8YyBWnJXBdALUwmIDjOMm4V2 5qrPXoXDiwPE7WCZH+Alberto+Lt3TPATiPYWxFFGcRuCgXRGVPdKsR9JzN3EGe5TnA6MhHG13tVahsiKgVQ ofYC8YAI6eCSThRPALPV8BeCBaqZ6yvbSwEAVrPYVXLiTzH92mhSGhKHRlCKC7DLYyKe6MXXKiK6Vfpr TkbLnaijSnANTwOFGUOD2KUTmrpmRhoTMsmFjwWF72 pYkrWE2DHp2OAwImDS3zut8StPAtNe9DMHSnHd9JWJXqJYErNDXcSXT2NBOyNeDmPAifTCGhVYRwMLE2 JPHsQQDmDF1YPaZrCXNaCPt8YsDbQDFlWZXrjt4XIOEnCEWePUX1HxIqHGUsKOLxKAdtBWTkVEQsNRN0 RPDyZJMmRA9RPvVyTQLdZDTzKqHyAOMtGZRdar9ARG JvLGLrYqH7UOXkMRUmXNJoGXlsQNHsIVRmZFDyHSQwVNHrNQ6IEnZqSZHaTXB8HMewTJRcCVFabo7LRX UtZJHgTiu9RCNvKLVoPFEsYAucABAiRKP9ZcZ4FZGmTMMxWW6KEkUnLRAyDSZ7QWrjXLPsCWSenj9CIO YgKGFbWXP3QzXrBJNbSOHlZOoqZSZaWIY2VAYeMGEi BLZcOT8TSrBtBYLbZYP6EAzxUSVwZJObwx2ZPQQdOZJtHnMsCnNaHDDvAPWmEVirMSGsICP2IaC6PAJv YNJyHO7DZkXgZSOzCSl0TIXkUPQoOLIhpp4TTNPbMRGvAralIoRrUEBlOBFkRHdpJTDrRAY6UkNdSTMp TJPoFU7CFnNuKEUcRDefKeTtHKCpESQpfu1AATHcDM DsYIA3DBLxTTUvNISjOWk8kmEfzVPhBRa4OG4VU3UthmXvXxFONu7Qm953WSVgBNMqTl3KM3prCs1sPK JaALLMIn5CCCa3WBN7HBOjTWKpHFBfYPOmDdrgO0NeTEEkRsKiLXBmJNY+CPoaZDnbCHOcXAF4AIV5P5 W3ZRNqHaQxQMElNHEqWcIxNk4aNURXIy3+NMtntWKnaPudHTLPAcN3XrAjANqcLTJOPs5C ID Date Data Source [id number] 08/19/2020 09:30:00 AM EST [facility] Name Value Range Interpretation Code Description Data Blanca rce(s) Supporting Document(s) EGD-Colonoscopy [facility] WFGWZd9jOiWTOaFfYZDzOpeLBDggISudUPDxY7P2OYwnZh9TUSzowoCwFEGwZe3+KKKoYS8ofs6fBVFd gMy [file] Application Support Lead/Oak1/q+FUZq41Y/Qu0o20l/hZNYjKw1OqgG0oDZp2lJyGme+fDYWth26/++GcjuEc6ua8MaoK4k95 [file] Application Support Lead/QTXFNU2B3L3AKHFsrqFUDs9BroHy/7+8ctz9fiOxQcy1sndw4subH35lRa8lN2PUiv542NQD/u226 [file] 7DXSj9wYHYAyQvI/Juxz47w4t/De Guzman+aJyNHywSS/GlWM0novIHOs4fcacJaDx9X1CuOPXdKRUqyfumvZ [file] 5a6Gmrr9/k4osgKlf4Krne20y0cTz1Z//museum director+x/lVmZSMeE9bEuyYW94XoIpWPvxGVubse3ju07ikO33s [file] 1Z89f5GHwoi0xeoSpwvePPs155kkj3lPt3+9LT2PzikaTs3xwwU/U/bfA/Dyan/EUcSZ21cist4UUte4z NWYKJpmVlntvcNANXQhlQA+JiYYwlGYEugYXre4E3cvaMcYUfwKn+44XWEPH84ioK1ppF0yHTKpBY/bA eCayensmca0T+ZDyaymHyevJICbcMFowciwM0IdABW Kc7v9hJIlct54iqAXW/3zCFu31Qdt5I2GDal1mGx0M1Qy7tu0/29Ar2DYwTMCteG2PbYPgZobyFbqCXC yt3Jc9KFSkYR+l/DtfdHejlsAzhB6rSjjJwezVJ2IBLEszm0Uzld3m9Cpz5zNJ/0V10bFqNvLo/4gnqD NClo0SALTj7mJO44H/n/p6WnOHogDU0w3YgDIhUBAY PQ7yvQEWp9D0kn3ifOx0AvOdTaM6P/2jJXmX/JL/Yx1fqx5l0ZGO19cnSyogJwSVcwpvzgiYUgKMgzwZ n9/iGJjWtaS8/hBUm5rBs/c9r/TFusd4z4nDpElyYXP6dgIuomMP577bL6tBfrmOaLjpUNaoOXn5+FCl Mh54Qj4ugA1N3Ht+TWTdA6YAbjAwZ1F8/Lv7Q/AAk0 QCiQ+gy7Ovc8FHyOJItLcfD5o1SfIy9Q9f/N/6nDCt8LdLrn9loE8SvvcTo2s5V/ZJ7q0iiRNyuqg7u2 +k/wsjYQw65xbMRm//fwip+6bd3agTOxSAkyS9Sy/pjAPVlFnE++g0yZLV4HT/hLSTryarF6ugcnKAu4 zHWyr+If/J61yM09+VS2gRa0mv9sV9kSHrqy8Lz7wl QDVfFGgVAe810i9N0D5Smh56jURp5yKEHC1JvDdejhwspivM6dWgVdyvVmwTr03F9jo+dXvxyZLuIABe qdjp1OwOMHJZUmuUsl+i6m7wiI0wNIozjk2B6UzJL3rAEgmxSldfxqk6pNKeXJlS3A1I0ynqco18/[place] Dee-ni' u9k6hm/jjNrhS8lVA1Ge0XKWyE4PCo9MV8HJ9D/Cfd DL93VQPg//Fi6lDJe2QSP7B/5CES/rW3+Rh4YFLtYI6yFJZ+k3WF/3xTHlzH/w+y/pM+2q16Ujmc2feV 5PLQTHw5/3hqbDBTOk5+hzvOI/7vIBT+D0j/Khr+JtdpFN9A+hvS35D+vxZ4lQ5n/Q3pb0h/Q/q3geQw /JEuFt4p+KpOluVxlBLXucGfFPq/DivQ0CiFVl2Fg5 4xz1WNgnaEuBB//7jkds7okRlMCUBcKQMoz837u1Ps2WtlKcC5BS64jfHVrpH6KGxo3xXyBerX9ll72h GHOJG63Tb+NS+N2kPwl59o+873YSmcTob7YXqHf6EDkK0PJSfw0fsjuHg6deAF2XujRYop0wqwh0sHSB PradGH1j6tfhF5v67hypvKaEGvUAwfsNnbNYPzzNES VMU5MExtJEeh9/x2khimOpbULey0IvRSxrih6b6D0dlW6l0u5jCz1wp7lmn168T7TmkZY4e8iGveNuCJ TfOQyUYKmZICWba52espaWvU79G5vLuCzImbdM+1fh0p8n7uQAS8kWtSbWfNWYMenBSjlIKimgAWRI7V t1jFuZZhRik0GyyMvh1Xa+xufPPwTa1mi6OfeE9DDT IdWXQz7BLs/nQvaUd/JQ1eVqiqJm+7TfcIaY4twoPkNxOhnl6IqKMJM1+tyK66E9KHnBsm7E3JF+RrqK 4vjuyjqA67qjweX/YuUkrPanwWF6O/NacVYOXx0ovnJZdByZbOgZ+7254C7LcAAs/CnbiisZFeM+dKxT DmWGp30AAIiK1+tiXIXxWzjFRiK9QSpCucbzrzhjAz chowdhury+PieGcrvK34VudEe+ForGk4Cxjav5DUF3q0I9NK7j3l0F7JklNsLp1tTO3dxg3t+KP1tWoHJC9N+ [file] tPD/ball winder+5RuUrmnNy9t/kd1J2swxC0N/oYGRr+VmCVtHmiMHhpbEnCSkCfcOyVu+YXV//d6kYk/C20YG [file] card stripper/PB7DNKnhqqnG1d+QQFAyOmh3agA/mvRvLDIEZzUf9Cv8cVd4O06XwnHaSQm3KLnfWOsTXY49gkjn [file] jTfq47f5zR1cJXbLauSJkGawCoYXdtYSwL+ZLS+assistant construction superintendent [file] S+FIELD COIL WINDER+pUFjDctcS/PqOqzLlY6HD9A5bvSaEXviJc7sD5pqUPpaPuRj0nze14CbBtkmZJdfec+EaQn78h [file] museum director/nOlnlhnd8At5oEVRWqcs1n/6fvjm9T+ObK3Wr8mv8kB/A687e+MPkyO9euglxkOu7bI7WZFjSYiGh [file] ALAC+Juan M/UoW+6MyUPzXQBEff9J0ZrXMe+0O4vxU6u [file] /8h7aP/BONDING MACHINE OPERATOR+Y0LbG+XDqNen0ysv4qICMS0uQXpWlO8gJTftKDMVy+v0a57eRIfC+xIsJSqG2alDV0Vrap [file] RaIC+v+sFmKqE9v6grZcKXRtGYEiYOE7+pulpwood contractor+aDXQg [file] a/QFwpR728SjHReSTyY0EH6qAbnKIGOR1A+JJFyXJtyp+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+KS+W2OSjXPkJP6fgxL9xengS/165Z7C AmKrRomNK5FyA8MounFRNlGl6HIYSWM/G2BPevUyc2YCGSIgsftGQqyxA0JiOd2UhFfZVxfH7RrM79J0 CDtE+dpIoDi/Ayh4JH61x3YCWb6KgQVO07hbtxtRHo 2adiUQaSu74OZ2Racw6N9LtYN20dnSc0DhXDdFJBA1g1oBSFyDLNtTK8hWdx54NaudKHyBQTZ5/35b+U PX/UQ0qDiD738BmPf6Pz1QTsRSsANuUBLyghNUZR3XUse1CQGHTjJDM86PQYPkvLH2yZIWMJMVF5X801 XBRrBa44q/dydXtiRxo1HUpiLn2+xIYn9KnOvPUagL w1a98gwfXA7e8+pBDtHycOEaOwufZYxnJuDZIBakBD19suRo5bR7jOMOggREFSrGHQBbadd5NpV2QXEr UtbcRcE6zFUvYPkW4Fq//IV6YJ57CzszwIu3AfAqAGbV1mERnUrdq6nkqhj3JjhoZRlA87hxUN7G+/3I f5BMdzpna3v8Oyyf1rcrerqrKxOP+X1mWYMI9GXOKy LAvWl6gRIwIr4/dwWX0QckTZ+dgFcHpn0S2bLQCSp++Sb4BoDT23b5ItMPPchnwlXGtT2HqdDD02w2IA zXM6kYWd1VJTHBmm0n6l5HUs0ESBY9Lrz6uaTC+5To2vAiYY/3zkkU+ZqET1wGpXd0wXY2R2sT8kDdU5 1Pxfv3p5E+bn05BUK2fbJZQcVaBTqxt+0rwVie76Ev xwpK32r1NkIH8P9Wdn//8xgNC1dkkRTymW6+xnDfW/jr53dp22qS3/xBjyw+/Wq6P9GTFSGz8ZEsJnzL Yy8mgb4U6o0luaq+7PXWG/JjMlbY5V/K9fxy6OKd55ncBAecQiHtL9T0F7AxZmb2vh7n1vKx7/qOyfBP nn7g5GMdvL29IY64MSspGuvfiu+cX6mKr6mC1ikZIi EDWIN/3CEpc+SwrmsEpJdt7xpKU5ANIbgNv0ZoRWk6vda8/O5nIU2N/lXXQ/97ihs/iCVDEwcVjDiZUo/GY TwBlJ5w3R7I3qbLhFGjBEWbXqsiMLjIqULSHy+qPFZ3p41D5+u1AE548qtFydvilGytlj7Np1nVQ7d+0 qR3dt7A5y9SSbfDILJd1sbBicLeK08cdCuowKe+F7+ Afy+FmqZPl8WJsMwsDe7bqu2Fz0pCdA+fRRBt1wrjdhGl9lTyR7iun4CxyhlliMpFpmyLl6I3AtSu7Q7 GXCnj0Z03Js/poqpkKSprz5Amjl8uguhQCUecUHWbIq9w/E+2IDd5dPHgm06hwiB11Fux6y0EOCjxwNL 1OJgy1OJzgrT4m0aNBIaUrvM+seVNTUsZx1CSfuuWE zkoxgsn6pITOtOCZgW/DyxxOK9F/YCMGhpQZnSRA17I81gwEH5vLNANJssw7y+hYVVmGYVjxyk6GDzIQ p1skS9yDcjg6c9QbYIXBXbHfteG/JBP6+94E6zz7wE1bVXasI11vedbD5UnnR9+L0k5HnwayNW2M+633 5x3uxlqIEIlb7/6qX+25gwae4EmPeu4QRKP0LRiLty 23gNfoKGZUAY3AdzB9EYp3LQPAzGXo2dVueSU0kDSYkDO6vRdZgY3FaPLJobWg6kLdbIYiuDytAHPWvm cf4Tpu0BN/texkGXC27+IYxJ6h3V/1Jagr2V3bBfOZLH6E6daLVi9D+POfYq3noh1gKTz7l7lJhxg3++ KItKBVmogUSmBZ0cWMLtt7YhkgFTSP8UcEes9C0dL3 u3C23v8zuJqw/ltVF9y69/XOXeT1pd+Cuct0s5Z+h+Jimenes/2FZC/lYUV3rq/ojPaL/dn68e3nkZkCkHLug [file] S7ZPCJNmCiURWLGFaQEVL+BMipZLoXBWOhEVRXV9C6 RUW6PsIxSwJLFKOIB4H2RUK2Sl3sX8Lwq9UsDTFlORMkDE4uxtTtRIZrJu8VxZskOLR8I6O5iTOqD3iQ HUYlLfVfDJD9ALNqOf4ksJWtTO9VWwonZ4MmKWCpTZJCLZUFOpv+AINUeZVsM4No4eFPq1yMLX7piGAl tuEMe6BbIc+A5I1tFiY/ZTDITFHYf2oEXP0mFQYTHu hHRNfccePjxCSuTK7VBbGpCM5dhg2GEbQ6HDR5yVMwDh1SNVy4HYk5ZLvfCPEEVb== ID Date Data Source [id number] 08/14/2020 09:15:00 AM EDT [facility] Name Value Range Interpretation Code Description Data Blanca rce(s) Supporting Document(s) SARS coronavirus 2 RNA [facility] This lab was ordered by [facility] and reported by [facility]. ID Date Data Source [id number] 06/25/2020 10:45:00 AM EDT [facility] Name Value Range Interpretation Code Description Data Blanca rce(s) Supporting Document(s) First Visit [facility] BOIWCd4sBiACKeOoSBEnAmnYSEztLMnlYLOhV6U2RZlkZv3VZQzdxnMsQRSgLx3+RENoAK8dyl8sEPNz gMy [file] HYDROGEN TREATER/XvkQ/6DjjxU7Zli/jJZgJh4J9D58k39U0Lyvbf [file] n/Raúl+EN3SaQQ/EL4rdaa0Rmx+JPPe/GLaiPTU2gVU9MCGLCpAF3Y5dExCcgC/afdIJ+gMQvVV0lNtFG [file] R+TRWbwXL/jPk8lC7vLUD9XDcYThYjvJHHgJi6Z/T/X5bMIgEQpYMYlScDKpYfzGvu0+z607s9i/Application Support Lead+H [file] t8/shellfish shucker+0atJI/4qd9AUa0rFsxfNSGT9+NjYRsXXsKvTeUMujJ3icayK9T5BbEORzrsxzc5JIgmgBPHy0 [file] gqS54d0OlLsPlPcscOYrCB1WbiadKe/fxtExjaRdjDP6NpYLG0SJKaVAtYzh5y/STAFFING ADMINISTRATOR+8nz/+DbXElE4y6 [file] H2IFM4LuxHCtzqn/bcpw7z0v9kE/G5ZHVgJxL/ [file] box sealing machine catcher+5w6kE63RniwITYQtHCmNFzSqhkkllJrilwCD7C [file] DedRkGa0L0FKSooDSY5RDT/ufXM6rAmNMFkD5YhL/Jose L+MxzuvnpOqt2VoHI+Lynda/bv0kaWKqmtimyQy [file] zdZp/M6glcli88GDqyc1MZM1QFqBmFa664Aqcu3a/yG1XrvWgFmsCiHB5cijNf3eFlalNOkOniN2/skin carver [file] BONDING MACHINE OPERATOR/XowjLTIf0YGATW15+7J6UQpIgY3eZhwsnSa2BfF8Ttzc1Fmd6He0iPFX2EQn16IDCUTXbaLc4TYet [file] 4qax+2wRMXHlHcgLD3oizwg/VZFl4cM73muKDhfE3rkmOtEg+kZswndwwomD+academic associate/XNXfsvBn85YCE9v [file] WNQX1Fix7WZE1bm8BySFPmZQwjurFsGvePAVwtsGMhpAaoKUYJFgc8VMB2LW0PRIHCW1Q= Procedure Social History Code Duration Value Status Description Data Source(s ) Alcohol intake 06/21/2021 12:00:00 AM EDT Current drinker of al cohol (finding) completed Current drinker of alcohol (finding) [facility] Vital Signs ID Date Data Source UNK Name Value Range Interpretation Code Description Data Source(s) Body temperature 35.83 Neli 35.83 Neli [facility] Respiratory rate 16 /min 16 /min [facility] Body height 158.8 cm 158.8 cm [facility] Body weight 89.812 kg 89.812 kg [facility] Body mass index (BMI) [Ratio] 35.64 kg/m2 35.64 kg/m2 [facility] Oxygen saturation in Arterial blood by Pulse oximetry 96 % 96 % [facility] Systolic blood pressure 136 mm[Hg] 136 mm[Hg] [facility] Diastolic blood pressure 84 mm[Hg] 84 mm[Hg] [facility] Heart rate 72 /min 72 /min [facility] Body height 63 [in_i] 63 [in_i] [facility] ([facility] 5'3" Body weight 190.00 [lb_av] 190.00 [lb_av] [facility] T ([facility]) Body weight 86.184 kg 86.184 kg [facility] ([facility]) Respiratory rate 20 /min 20 /min [facility] ( [facility]) Heart rate 69 /min 69 /min [facility] ([facility]) Oxygen saturation in Arterial blood by Pulse oximetry 99 % 99 % [facility] ([facility]) Systolic blood pressure 141 mm[Hg] 141 mm[Hg] [facility] ([facility]) Diastolic blood pressure 89 mm[Hg] 89 mm[Hg] [facility] ([facility] Body mass index (BMI) [Ratio] 33.7 kg/m2 33.7 k g/m2 [facility] ([facility]) Patient Treatment Plan of Care Planned Activity Planned Date Details Description Data Source (s) Naproxen 500 MG Oral Tablet [facility]
[2021-08-06 15:35] LABS: BASO # 0.1 10^3/uL (0.0-0.2); BASO % 0.9 % (0.0-1.0); EOS # 0.1 10^3/uL (0.0-0.5); EOS % 1.5 % (0.0-3.0); HEMATOCRIT 43.4 % (36.0-47.0); LYMPH % 24.8 % (24.0-44.0); MEAN CORPUSCULAR HGB CONC 32.3 g/dl (32.0-36.5); MEAN CORPUSCULAR VOLUME 92.9 fl (80.0-96.0); MONO # 0.4 10^3/uL (0.0-0.8); MONO % 5.4 % (2.0-8.0); NEUTROPHILS # 5.5 10^3/uL (1.5-8.5); NEUTROPHILS % 67.2 % (36.0-66.0); PLATELET COUNT, AUTOMATED 354 10^3/uL (150-450); RED BLOOD COUNT 4.67 10^6/uL (4.00-5.40); WHITE BLOOD COUNT 8.2 10^3/uL (4.0-10.0)
--- NOTE | 2021-08-06 15:41 | REP ---
INDICATION: CHEST PAIN. COMPARISON: None. TECHNIQUE: Single portable AP view of the chest was performed. FINDINGS: There is no acute infiltrate or pulmonary edema. Lungs are clear. There is mild linear fibro atelectasis in the left costophrenic angle. The heart is not significantly enlarged. The mediastinal silhouette is unremarkable. The visualized osseous structures are intact. IMPRESSION: No acute pulmonary disease. <Electronically signed by Markus Sarmiento > 08/06/21 [id number]
--- OUTSIDE RECORDS SUMMARY | 2021-08-06 15:56 | CCD ---
Author Author [facility] Organization [facility] Address Unknown Phone Unavailable Care Team Providers Care Investigator Name Role Phone RAHEEL WALLIS Unavailable Unavailable [...] Unavailable Unavailable Karina CHOI MD Unavailable Unavailable Kairna CHOI MD Unavailable Unavailable Karina CHOI MD [...] JIMBO, Karina WHITT MD Unavailable Unavailable JIMBO, Kairna WHITT MD Unavailable Unavailable JIMBO, Karina WHITT [...] JIMBO, Karina WHITT MD Unavailable Unavailable Pattan, [facility] Unavailable Pattan, [facility] Unavailable JIMBO, Karina WHITT MD Unavailable Unavailable [...] JIMBO, Karina WHITT MD Unavailable Unavailable JIMBO, Karnia WHITT MD Unavailable Unavailable JIMBO, Karina WHITT [...] Annette Byrne MD Unavailable Unavailable Flintrop, Annette Bryne MD Unavailable Unavailable Flintrop, Annette Byrne MD [...] is protected by Article 27-F of the [facility] Public Health law. If you continue you may have access to information: Regarding HIV / AIDS; Provided by facilities licensed or operated by the [facility] Office of Mental Health; or Provided by the [facility] Office for People With Developmental Disabilities. If such information is present, then the following [facility] mandated warning applies: This information has [...] law may result in a fine or fci sentence or both. A general authorization for [...] Raheel WallisAttender: RAHEEL WALLIS 11/12/2021 12:00:00 AM [facility] Outpatient Attender: NENITA CHEUNG 11/11/2021 12:00:[address] [facility] Outpatient Attender: Sal LEBLANC 11:36:06 AM EDT - 08/01/2021 12:53:16 PM EDT [facility] ([facility]) Outpatient Attender: Chavez Valdes MDReferrer: JOSE EDUARDO MELENDEZ MD CHIQUITA-CHIQUITA.SST 07/27/2021 10:15:00 AM EDT - 07/27/2021 11:59:00 PM EDT [facility] Patient discharged. Outpatient Attender: JOSE EDUARDO CHOI MD [id number] 2020 01:02:15 PM EDT - 06/17/2021 01:57:56 PM EDT [facility] [id number] 06/08/2021 11:43:16 AM EDT [facility] Outpatient Referrer: JOSE EDUARDO CHOI MD 05/14/2021 01:23:36 P M EDT [facility] Outpatient Referrer: NENITA CHEUNG 11/25/2020 12:00:[address] [facility] Outpatient Attender: NENITA JONATAN [id number] 11/11/2020 12:00:00 AM [facility] Outpatient Attender: Medina Rust MD [place] 08/31/2020 08:40:0 0 AM EST [facility] ([facility]) Immunizations Vaccine Date Status Description Data Source(s) 01/13/2021 12:00:00 AM EDT completed <td I D="[id number]">Covid-19 (Pfizer)</td><td>01/13/2021, 12/23/2020</td><td></td> [facility] COVID-19 VACCINE Pfizer 01/13/2021 12:00:00 AM EDT completed NYSIIS Vaccine Series Complete: YESThis Data wa s Submitted to [facility] [employer] 12/23/2020 12:00:00 AM EST completed <td I D="[id number]">Covid-19 (Pfizer)</td><td>01/13/2021, 12/23/2020</td><td></td> [facility] COVID-19 VACCINE Pfizer 12/23/2020 12:00:00 AM EST completed NYSIIS Vaccine Series Complete: NOThis Data was Submitted to [facility] [employer] Influenza Virus Vaccine, Quadrivalent (Cciiv4), Derive d From Cell 08/04/2020 11:25:00 AM EDT completed [facility] ([facility]) This CVX code allows reporting of a vacc ination when formulation is unknown (for example, when recording a Influenza vaccination when noted on a vaccination card) 07/25/2020 12:00:00 AM EDT completed <td ID="immun [id number]">Influenza (Unspecified)</td><td>07/25/2020, 10/28/2017</td><td></td> [facility] Medications Medication Brand Name Start Date Product [...] 354 USE DIRECTED USE DIRECTED SOLD: 07/01/2020 [facility] Clobetasol Propionate 0.5 MG/ML Topical [...] Take 500 mg by mouth as needed [facility] Insurance Providers Payer name Policy type / Coverage type Policy ID Covered alliance party ID Covered alliance party's relationship to sanchez Policy Sanchez Plan Information BCBS Ppo Health Maintenance Organization (HMO) [id number] Se lf [id number] Spouse [id number] EXCELLUS BCBS [id number] Leonor VYS [id number] EXCELLUS H [id number] Spouse [id number] EXCELLUS H [id number] Spouse [id number] EXCELLUS BCBS [id number] Unk VYS [id number] BCBS [place] Other 0 [id number] Famil y Dependent Gigi Sen 0 [employer]CELLUS BCBS [id number] Spo VYA EXCELLUS BCBS [id number] EXCELLUS BCBS [id number] Spo [id number] [id number] Excellus Blue Cross and Blue Shield - [place] Blue Cross/B lue Shield [id number] Self [id number] [place]BS [place] PPO 302/307 [id number] HU2 [id number] [place]BS [place]/307 [id number] HU2 [id number] BCBS/[place] Commercial [id number] Family Dependent [id number] EXCELLUS BCBS B [id number] O [id number] [id number] BCBS/[employer] Commercial [id number] Family Dependent [id number] BCBS [place] PPO 302/307 [id number] HU2 [id number] BCBS [place] PPO 302/307 [id number] HU2 [id number] BCBS [place] PPO 302/307 [id number] [id number] Problems, Conditions, and Diagnoses Code Display Name Description Problem Type Effective Dates Data Source(s) G47.9 Sleep disorder, unspecified Sleep disorder, unspecifie d Diagnosis 06/17/2021 01:02:15 PM EDT [facility] 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 single thyroid nodule Diagnosis 06/17/2021 01:02:15 PM EDT [facility] Z00.00 Encounter for general adult medical examination without abnormal findings Encounter for general adult medical exam Diagnosis 021 01:02:15 PM EDT [facility] [id number] Flatulence, eructation and gas pain Flat ulence, eructation and gas pain Problem 08/31/2020 12:00:00 AM EST [facility] ([facility] [id number] Atopic dermatitis Atopic dermatitis Problem 08/31/2020 12:00:00 AM EST [facility] ([facility]) Surgeries/Procedures Procedure Description Date Indications Data Source(s) Skin Test Scratch # Of Units ____ 08/31/2020 12:00:00 AM EST [facility] ([facility]) Results ID Date Data Source [id number] 06/21/2021 11:42:50 AM EDT [facility] INFORMATIONPatient MRN Name Date of Age Gend*PT [id number] Destiny Sen 1970 50 years F ---PT Location Admission Date/Time Visit ID Attending Provider --- --- --- --- EPI ID CSN Admitting Provider [id number] ---Assessment/Plan:Diagnoses and all orders for this visit:Physical exam, annual (Primary)Thyroid noduleComments:thyroid nodules, largest of which was biopsied 2015 benign goiter, latestultrasound through [facility] ([place]med in [place]) 05/26/21Orders:- Ultrasound thyroid; FutureSleep disturbance- Ambulatory referral [...] nodules, largest was biopsied in 2014.Ultrasound through [facility] (study performed in [place]) on 05/26/21.Do you take any herbs or supplements that were not prescribed by a doctor? noAre you taking calcium supplements? noAre you taking aspirin daily? 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.The following portions of the patient's history were [...] Social Gatherings with Friends and Family: Attends Synagogue Services: Active Member of Clubs or Organizations: [...] rce(s) Supporting Document(s) ID Date Data Source [id number] 06/08/2021 11:49:[address] [facility] Name Value Range Interpretation Code Description Data Blanca rce(s) Supporting Document(s) WBC 6.6 K/uL 4.2-10.4 [facility] Neutrophil % 61.8 %N 37.0-82.2 [facility] Lymphocyte % 29.4 %L 10.6-50.6 [facility] Monocyte % 5.1 %M 2.8-13.0 [facility] Eosinophil % 2.0 %E [...] [facility] Hematocrit 43.2 % 35.2-47.0 [facility] MCV 92 fL 80-97 [facility] MCH 30.7 pg 28.2-32.4 [facility] MCHC 33.4 g/dL 32.0-36.0 [facility] RDW 11.5 % 10.7-15.1 [facility] Platelets 386 K/uL 150-450 [facility] ID Date Data Source [id number] 06/08/2021 11:49:00 AM EDT [facility] Name Value Range Interpretation Code Description Data Blanca rce(s) Supporting Document(s) Glucose 103 mg/dL 67-106 [facility] Urea 12.0 mg/dL 5.0-25.0 [facility] Creatinine 0.6 mg/dL 0.5-1.2 [facility] BUN/Creatinine Ratio 20.0 13.0-22.0 [facility] eGFR 105.8 mL/1.73m [facility] Sodium 141 mmol/L 137-147 [facility] Potassium 4.3 mmol/L 3.7-5.4 [facility] Chloride 102 mmol/L 95-107 [facility] Carbon Dioxide 26 mmol/L 21-30 [facility] sicians Anion Gap 13.0 7.0-16.0 [facility] Calcium 10.0 mg/dL 8.8-10.4 [facility] AST 19 U/L 1-41 [facility] ALT 24 U/L 1-43 [facility] Alkaline Phosphatase 92 U/L 36-126 [facility] Total Bilirubin 0.3 mg/dL 0.0-1.2 [facility] Albumin 4.1 g/dL 3.3-4.5 [facility] Total Protein 7.1 g/dL 6.1-8.1 [facility] icians Globulin 3.0 g/dL 2.2-4.0 [facility] A/G Ratio 1.4 0.9-1.7 [facility] ALP now traceable to the IFCC procedure at 37 ID Date Data Source [id number] 06/08/2021 11:49:[address] [facility] Name Value Range Interpretation Code Description Data Blanca rce(s) Supporting Document(s) Cholesterol 225 mg/dL 100-199 [facility] Triglycerides 72 mg/dL 25-160 [facility] HDL 71 mg/dL 40-[address] [facility] LDL (calculated) 140 mg/dL 0-[address] [facility] VLDL 14.4 mg/dL 6.0-40.0 [facility] Chol/HDL Ratio 3.17 [facility] Values listed are Risk Dependent: ID Date Data Source [id number] 06/08/2021 11:49:[address] [facility] Name Value Range Interpretation Code Description Data Blanca rce(s) Supporting Document(s) Ultra hTSH II 0.60 uIU/mL 0.35-4.30 [facility] Launch of Elecsys TSH assay on to mitigate biotin interference for patients taking biotin in serum concentrations up to 1200 ng/mL. Please note new reference range. ID Date Data Source [id number] 06/08/2021 11:49:[address] [facility] Name Value Range Interpretation Code Description Data Blanca rce(s) Supporting Document(s) VITAMIN_D 49.3 ng/ml 30.0-100.0 [facility] Literature Review: ID Date Data Source [id number] 06/08/2021 11:49:[address] [facility] Name Value Range Interpretation Code Description Data Blanca rce(s) Supporting Document(s) Hemoglobin A1c 6.5 % [facility] Effective 08/28/2019 testing performed o n the Variant II Turbo. ID Date Data Source [id number] 05/27/2021 04:04:00 PM EDT [facility]: DIGI MARTI MAMMOGRAM SCREEN BL [...] recommended in one year as per the [employer].ACR Breast Density: B- Scattered fibroglandular densityCLASSIFICATION: BI-RADS 1 - NEGATIVEResultCode: BR 1 BDISCLAIMER: According to the [employer] and the [employer], any patient with a lifetime risk assessment greater than 20% or patients with dense breasts (heterogeneously or extremely dense), m ay benefit from additional screening tests for breast cancer. Further screening tests for patients with dense breasts (heterogeneously or extremely dense) should be based upon the patient's breast cancer risk status. All patients, having their mammogram with [facility], with a lifetime risk assessment greater [...] rce(s) Supporting Document(s) ID Date Data Source [id number] 11/11/2020 11:13:20 AM [facility] Name Value Range Interpretation Code Description Data Blanca rce(s) Supporting Document(s) Progress Note [facility] UFBFKx3oXoYCXtZc36/XRXqyIINip2LvSDelOSe7HYifNXSgX6LyAJO2kL3rNEI9OIsYElNfDpGcJRC8 lbm [file] [id number]== ID Date Data Source [id number] 11/11/2020 11:13:15 AM [facility] Name Value Range Interpretation Code Description Data Blanca rce(s) Supporting Document(s) Progress Note [facility] NOOSFm4xJfTPEoOw19/OWWeaQACfh5DtINovUZm1DDtoBHLmN6QyVCI5wZ3xEBF9FOkPNwNvUpQlSQF2 lbm [file] AgICAgICAgICAgICAgICAgICAgICAgICAgICAgICAg AEPrCCDxYVRmJL8WXRXyYSPuMPWbBBIfQVEeCVFzGCVbLZZjLXPrJXKtQRZzHYOnWHCeVSTxBVTuXKGz PMVwUNZeLCPpPTInWQBpDTCuLPZqBCHfNUEfNYPdXIYyNZXuHEIcXZSkGDByMTSyRFSxPC1EMUAkSAYd ICAgICAgICAgICAgICAgICAgICAgICAgICAgICAgIC AgICAgICAgICAgICAgICAgICAgICAgICAgICAgICAgICAgICAgICAgICAgICAgICAgICAgICAgICAgIC WnJS6FJNCvVIHkIMXeRRYlIORsDEZiTKCfIHYyJQBqFWNyHALgHNBzATEfYHBlNLFtTMPtFOPhEWOnCL AgICAgICAgICAgICAgICAgICAgICAgICAgICAgICAg IFSePNEiCHErJMIoXP8BOGHmHYPvWNVmPAEgGKFzYQBdBYUiHIPzWWDqSZHxRXQxRSRiDJEpXPAuXXQv QVVsROUrMRGxKCJnJELmZQAoDJGoDKVnMHYsBDTmALZkWJKlDSJcPQXuAMHvMSTiRWJjNWZcYL8OZCLu ICAgICAgICAgICAgICAgICAgICAgICAgICAgICAgIC AgICAgICAgICAgICAgICAgICAgICAgICAgICAgICAgICAgICAgICAgICAgICAgICAgICAgICAgICAgIC ZzBRIaSX1HTXTyFSYjBNGaPLZnLCVgDWSxLAAbYKWwNSRcRYQoDARtKWDsMDAwTZZyHCNhVMEzSUToCO AgICAgICAgICAgICAgICAgICAgICAgICAgICAgICAg UVWkVHBtIWZjPHLrUDBuYM4QHXBcGBOdOXQzLNFnTLOmWSLqAJOiHEIiVACpHSNaXGTvGSCtGYXqJUPn QTCbPKGvCCVgDQAxNITmQQOvJXZqHHHyBGIuOPWqWJLvJBCjKHLhISHbVIOxSXUcAQYlYISjGONwGD3I ICAgICAgICAgICAgICAgICAgICAgICAgICAgICAgIC AgICAgICAgICAgICAgICAgICAgICAgICAgICAgICAgICAgICAgICAgICAgICAgICAgICAgICAgICAgIC BoRYEzHTChDT0KCUPmRFSzZOVqZIZjSAYoPCLuDLUpXDTuUKFrGPYkOAOlQLPnZPUgNYQcUTPrTYKiQT AgICAgICAgICAgICAgICAgICAgICAgICAgICAgICAg ADLrQMNaZUZxSGUgJDHvRIBxMN4WUL04cKBuv9Y5ZLLeAB9ywhf/Xa6MNAdeqcBgrZFgBN8TBeVsBC9m rk6TGcUvHD9zro6AFAqKHpSwX7F1lPLjIMDpICIKRpVxT87qYPydXz88LLamDKYiXqLbFWz9Qm1TAoZo P1mmLQAtCgA2LHYlOpFxORpzWM2Du8AouILeIEx+Pg 9OHZ9ny7TcUSilRWNfUK7skg8OHXtHPjQgJ9NphkI5QDNbAPPdZh9WOICbFRShoLEkAQLeDLWGJzXuD0 KwfC99WNNOZo1+LDbdxjQxMujQMkKcETCpp0SpNHh7AU2PBIQaWQv6sGGfBISvJ1Khl2RwYo12HCSlEp tqLJkrCYHLMNv8keD7LXUKYC4cTNCsRD6rLb2hSNZe GZE2EbBlJOUXDJ8GWJMmGVKasGWlIJTbICPDNY0DHAdxBWU9CMMvjuXcrMJwIVcuPG3TNHKtpuZnRMhh MCBSDQo+Mj2TYM8tr0VmEBkePGKjJA7hmg1AQGpDFyQnI1S7eITqA1O3OUkyCx1ZTHFtBHCkTNcrWYDW AIkbAP8VWU1invF2ZE5KmRGdKQHpCWYgpEVcTGq7V6 3eqXNgTSacVG5DCXJ+Alberto+Sd0CUCOqRGUdPXQvErEuZPPEImUhU5XeX6FZt8IxO8VaBH55cYskogVhEC imJV7QHE9dMRVuALPHVY3MsUYleS4fwfVpIKFnHZMSXcZsN77zsXKxWTPiVUC4UTZqVw9EQQXgU1Tgtv KsxFbjqsWiDDOmTXGVAO1CHGfdnpCqqWTpySdzWD29 cDqmQC6YOx9CEyYcGP8bby3YxEZbAa5OIDIuWp1RMHXuPVZgSDKvDYD4SBUpElZkNZcoPZCyTUIlIOO4 HLYqFBShSO5OWsSnDHHoUAt8ShLiDGLyIPMhvb2CVLUzCVYgYNW3MnGzKYZsJGUlKCvfFQPnYQSlWIM0 PWWrBBOlVT2HReLvOMIvHVKiDbOaPKVaRJQqtm8XGM BwWQSoNtR6MMKdFAIvOAMmIPhaLVMmGMQxVHQsCDDpPDPyYL9DEaFiPHVbCEF7IGvsDTFsETRvsd9YNK NxRHKrNqt4SBHgZWIfJAUtLWtcRENgKZC1LpD4EWHlRHJiKA8FXjSbQPYyRWF4JBpiBYPmWNYwtg4VYQ BuQIUrLYD4NgXaDIRqFYIaZCqrNTTcFYW5ULHdSULc TFTwGM4ONtPvCAIrRJI3PYjbWIGfOKAmhk8YNVZtZACaYnXmCqJbJWBqMWGjSInxDLAzQFT1XjA8ZLNl DQZmPP7WPfGaCPWyHKq3GFVxOFAmPPBeas2ZLIMbWIVtZrqiIuGtVRTvKXWsTKbtGJToBIM6MrDwNSBu WXCpTB0PTlWaQNCxXUopHxLtOKBbQEEpky9KZETxHJ HcGOY9TAXyMHZzBOMtMZr4nrNuaYWrMNm1VY8QX3AiwvCzQcKIWu3Yo595VZNpNLZzFh7BR7snRf9lMR RaPFSDSp1UVGc0MLT9YVDjVXIcVWRlNDUpDyrsN5JbHRWdHfVkFKNiIJC+TChgCBjeRNCfWNQ4IBE4V0 A9ZJTiEeCiZJXuKZUqUuViJg9dYMTFVc1+SHsadTYdpMdmYMCPGiR5YmLwRMmqRWBLBj0A ID Date Data Source [id number] 08/19/2020 09:30:00 AM EST [facility] Name Value Range Interpretation Code Description Data Blanca rce(s) Supporting Document(s) EGD-Colonoscopy [facility] JQBGKw5kKcUMKkLuVNBsFujBBRxaDVgyESGvC8T7SNywGb2EOGhtduCqCOXrOc5+AMStJJ6kle6kMISp gMy [file] Automotive Finance Manager/Oak1/q+JDUp83Z/Rq0s31k/jLRRiPq2FnuB1pRUb8mHrWrh+bTKPqb27/++DaaxIp6us9VxcN0k00 [file] Automotive Finance Manager/YYRTYG4U3K8WIPWkmzGGMs6MbjBx/7+6meq2blRuNql7wsce9hsdG40fJd1cN6GFax622CJF/u226 [file] 8BLWj6aEZJPqJeF/Wvce10c1y/De Guzman+aJyNHywSS/PzKK4riyZYPv0xtlbNaJo0Y0TsAIAdIVAunracdK [file] 4u2Qmpn2/c5pajUqq7Rzql70r5tSs4F//chef & owner+x/mAkBTHgC6rHdeTR79QjPjUAhcCGirae5pl51wkB32y [file] nQwp+Vn7ZjU+EXcRJU5OKOm+3S33jeaiMIma+DIGITAL PROOFING AND PLATEMAKER/HdSafb7yTfZtAjC8KDigO+dyPfoqBkzv68qlukS [file] cabin [file] S+DIRECTOR CRITICAL CARE+pUFjDctcS/WeUruSwD1MC4C1ylJzYEomOi3mS8xhVNmnJgYm4orv27CdNdoyWShxqc+BgYo24m [file] chef & owner/jXgclgpy4Cd8tLGOCqwx5f/4kdnm8S+HrG0Uv3rh0cO/A687e+LGelJ1nzuiecMh2iB5UOAiLRhQf [file] ALAC+Juan M/UoW+0WhFEyNCSLua4Y2JtJJe+7N6ueL4j [file] /8h7aP/COMMERCIAL CREDIT HEAD+Y0LbG+WCqIkl4jvn0tYTMT1sFEiAiJ6fALadFJUNr+x9r76rFAmB+xFoWHrA5lfUZ5Zwry [file] RaIC+v+rTwKcW2s1omJmYAXnIXWpPXB3+stroke coordinator+aDXQg [file] a/KXzdU101YoUDbYGcJ9RB5tKwrESQYP9K+JJFyXJtyp+post exchange manager+KS+P1MLyKGnLE8jxtU1gwmoK/165Z7C CnXaAovJH0KzA9BpyoLKQbHl4XQOKLD/N3SEyoQab9BJXUVmbatADezrX9LgOe2VmFhCWxrX5GrL47T1 CDtE+dpIoDi/Nel2RM15r4ARSy6ZxJCE27srfuvQQb 4vduUFhAh19JA3Dple9G3EqDX82qtUj2HtWDzQQPV9e5vGCFmTPAkIV6lGtv65FegvGQdMEKH6/35b+U PX/GN5dPbV881CiTd7Gz7TVjJOtBOkQMXhebRLAH6SJzp9UWDTKfVWI71URNNndIU1iXSNCVUPD2G538 WDSoZv54z/wmeLltQql1DWgdIj2+kAZr3BbBmZOmdH o7e49vtkWM2s5+mKYwQmxIAyPysdXLlxZcKEWCyjLB71inMh8mD8tHKOldYYUVxMGWJlsig8BsC6ZNEi JpcxXsC2hXZjYLrQ7Ow//WO3AC00UwtrcPv7ZdPeYCsA8mHQqEoey3ooxil0NfbiCUhH86upDR5J+/3I k2LBbxoue4h0Eqnc4piqtvepRxKS+W5jWMKP4YQFQa WRrSg4zGYqTv3/juHU7YoxEQ+deHlHhb3U2bFKWMd++Or5RgTP67g3GhBHWzonhzIGnJ3QcnEN24x4BL pEG4oKDm4YGLPPin8d7c6ANv4BDIY3Fen1nzFL+0Kp8xEkFB/3zkkU+WnDZ6yAvIq9qSJ4P8vM0hNfH8 0Ewvt6q8V+ox62AWR9ojSYArXaNDlwn+9iyWqk62La ucxP07k1ZaZP4R9Etj//5sbWD5unrXWtcA5+xnDfW/hi05ew30lH7/xBjyw+/Su9M1DBHFTk9RYtBzcG Ak7wnk9P6d0vbcv+7PXWG/BdZeuB4Q/V6sgn9GOo82xjZVwxZiSzX0H5B1FbNzc2zn5q3mWc2/qOyfBP om6t1PKkaP01ZC25GPnfXnxilm+wJ5xMo9rI7mgWFo EDWIN/3CEpc+OteaaFmBhl5zuRB0YUQrnDg6XxMDo4nzy0/X3wGR8X/lXXQ/97ihs/iCVDEwcVjDiZUo/GY CnKzT1g0A2H2ssWpUHjDSFuCfgvOHlKgRFWBr+uACB2w78X1+d8AI274pnHqicvpYdycr5Xr0bOQ5u+0 pQ4hb2T8i5ZKixYZRHd7hiVnwZiT13chXshiXb+F7+ Afy+OqqTXm7EXnZvaQw4ocf0Cr1fUaT+wHCHh8klyheHg5jQwI5zex7HewohjvZhTjjuLe7C3ZhUh5K4 GIFfy3G67Kp/lcpboJCjmz5Ojyh4zumbFEZnvVYXkWd8a/E+7FUq5nIHes72uymR33Jmn3f6MOLhecLZ 7JGqn5JYazfN1a1bWQRpRbpG+tpDCWVaAz7YRlpsFD kdjwugl4hGNAjCQGiE/IrvoJG8P/EWGZfkVMqNTD47E14rrQB4cXSAQEmxd1a+nAEEfISPsuru9BAeII p6xtH1bHwhg2w6LkZQTIWmFqvjY/JBP6+86Y2rh9iC7mRCysJ54vkevN8HufH5+F2f9UeihlVF0E+633 7o2rcmoHDWqt9/6qX+24phre4WxMxg5GOGH2TRuZvl 56cUwfNVUVQB2WfxB2OVm2PEEDqJTy6yQfqNX0eVYSwEC5jWrXvN1FgJPJapMn2mXxmHWbrJxgKLFAmu ar9Rms9PJ/ehxdJPE86+GJfR1q1N/1Myxd0A2zXlEMMC7Y0bdNVv2B+BTdPb5lga3aEJb5y4dRbvs2++ BVbNRTdplSGcCF5xGMGtl6MctuNBHT0KbXde0U7rN1 j4U80r9yySno/bsHG0w04/RELlP7xs+Uqdt2l6V+h+Jimenes/2FZC/qMWQ5nl/ojPaL/lr20r2zeMwEyWStd [file] E1NIPPJzOrSSNDUJgYUNQ+NDtdMQgPLIRiZOCBA2K9 YGK4QnUiQaFAOVNYY6K3RPF0Qf0dC4Dmu5QcMQElIYRmWY2numAkVHOnYq0EcIebXRO5P9G0zLVkY2nF SPHhAqJcAPL7JMEzGc3wpSQiQW9BKgnmH3LlCFMjIHQHASQNPfq+XTNVeAOkF4Bf6uYKw5oXNR7yuFAt cePBi7PjFu+O7U4pJvJ/TCIURGJFt3tMID5dEKHZSr kQMBptpvJdxJRiKD5GYeZyFB7rsh3UQaX2TNC6fSAwVp9QHMi8TDp0BYasDUGKZn== ID Date Data Source [id number] 08/14/2020 09:15:00 AM EDT [facility] Name Value Range Interpretation Code Description Data Blanca rce(s) Supporting Document(s) SARS coronavirus 2 RNA [facility] This lab was ordered by [facility] and reported by [facility]. ID Date Data Source [id number] 06/25/2020 10:45:00 AM EDT [facility] Name Value Range Interpretation Code Description Data Blanca rce(s) Supporting Document(s) First [facility] WDODJl2mUdRVQtYfAHSvAacXCXriZQmuWSTmH7K2FHzaLr6HXCckgdAeSWWtDt1+IRVvVW7gcp9vIKEl gMy [file] SCRAP BREAKER/XvkQ/3XnvwL4Yas/lWKmRg6K1D36h92J2Mmazm [file] n/Raúl+HK7WjYH/RD1jdqo1Sad+JPPe/JMguSAD6oMY8WQRVPkKX3K0mLpQbtH/afdIJ+dFYkRP3dIfSL [file] R+TRWbwXL/vMu3gY2xVRF2VLgWJsRdiBJVwGb5Y/T/P8lVTxTPeJEDgOwPYqBwbJau0+b778m4c/Automotive Finance Manager+H [file] t8/el teacher+0atJI/0np0BOo6uXawwUQOC7+DmSLgRBpPtZtIBwzD8kvkwE6L6HuDITwrhzdy5AXepfGDKr1 [file] clG99b6KoYePeTlyoCToEU4BdeuaLe/yidExuuNhhNB7KfVYR3ELYiVTvNic4a/TRAMPOLINE TEAM COACH+8nz/+FpTJyJ6b1 [file] T6XQC3CbeMFpmor/ymqs6x0t3rJ/S5DQMmHsG/ [file] transmitter supervisor+0l1oK00GeksFDDBvGVlCLeXipqzcaRqmupYR5M [file] PpgIeOn7M6QZBsfEEM1UZV/tgBB2wVzJIFzI1ZoS/Jose L+QeiunmqMkq3UsSH+Lynda/ou2wvZBxgpshkPk [file] zdZp/W5pepzf48TDpyy9REM6ZSeHmCx688Unwk2v/qV3JqyVzAruPlHR6hipMn6sIijcVJiZenW9/hotel superintendent [file] COMMERCIAL CREDIT HEAD/CrhmIHBf8VOXJC93+4Q9ZQbKoW7tNnvxkNj5ToI1Dyfl4Qbx0Ui5gVAP2DVt94GOSWCFssAh5IBld [file] 4qax+1iGRHDlAsiJE4cznhq/RIFn3tW51wmRUypJ4fzeYfHd+kZswndwwomD+mounter saxophones/JCLdpdAh16LOJ6f [file] FENO0Gcu2QBG1ea1VrKORwYUsuuzZkJfvSRMkycCYuaUnoFJXKHxp6HGJ9LQ9EYNCYE8Q= Procedure Social History Code Duration Value Status Description Data Source(s ) Alcohol intake 06/21/2021 12:00:00 AM EDT Current drinker of al cohol (finding) completed Current drinker of alcohol (finding) [facility] Vital Signs ID Date Data Source UNK Name Value Range Interpretation Code Description Data Source(s) Body temperature 35.83 Neli 35.83 Neli [facility] Respiratory rate 16 /min 16 /min [facility] Body height 158.8 cm 158.8 cm [facility] Body weight 89.812 kg 89.812 kg [facility] Body mass index (BMI) [Ratio] 35.64 kg/m2 35.64 kg/m2 [facility] Oxygen saturation in Arterial blood by Pulse oximetry 96 % 96 % [facility] Systolic blood pressure 136 mm[Hg] 136 mm[Hg] [facility] Diastolic blood pressure 84 mm[Hg] 84 mm[Hg] [facility] Heart rate 72 /min 72 /min [facility] Body height 63 [in_i] 63 [in_i] [facility] [...] Source (s) Naproxen 500 MG Oral Tablet [facility]
[2021-08-06 16:04] LABS: ALBUMIN 3.7 GM/DL (3.2-5.2); ALT/SGPT 36 U/L (12-78); BILIRUBIN,DIRECT < 0.1 MG/DL (0.0-0.2); BILIRUBIN,TOTAL 0.3 MG/DL (0.2-1.0); BLOOD UREA NITROGEN 19 MG/DL (7-18); CALCIUM LEVEL 9.1 MG/DL (8.5-10.1); CARBON DIOXIDE LEVEL 28 MEQ/L (21-32); CHLORIDE LEVEL 106 MEQ/L (98-107); CK-MB VALUE MASS < 1.0 NG/ML (<3.6); CPK CREATINE PHOSPHOKINASE 92 U/L (26-192); CREATININE FOR GFR 0.68 MG/DL (0.55-1.30); GLOMERULAR FILTRATION RATE > 60.0 (>51); GLUCOSE, FASTING 87 MG/DL (70-100); LIPASE 82 U/L (73-393); MB/CK RELATIVE INDEX 1.09 (< OR =4); POTASSIUM SERUM 4.8 MEQ/L (3.5-5.1); SODIUM LEVEL 140 MEQ/L (136-145); TOTAL PROTEIN 7.6 GM/DL (6.4-8.2); TROPONIN I < 0.02 NG/ML (< 0.10)
[2021-08-06 16:22] LABS: RSV AMPLIFICATION NEGATIVE (NEGATIVE)
[2021-08-06 19:20] LABS: CK-MB VALUE MASS < 1.0 NG/ML (<3.6); CPK CREATINE PHOSPHOKINASE 42 U/L (26-192); MB/CK RELATIVE INDEX 2.38 (< OR =4); TROPONIN I < 0.02 NG/ML (< 0.10)
[2021-08-06 20:00] VITALS: BP 137/78
--- NOTE | 2021-08-07 06:40 | ECGEPIP ---
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
--- NOTE | 2021-08-07 18:20 | ECGEPIP ---
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
== END 2021-08-06 20:04 | disposition home or self-care (01) ==
LOC: M ED 14:10
DX: R07.89 Other chest pain (principal); M54.12 Radiculopathy, cervical region; E11.9 Type 2 diabetes mellitus without complications; K22.70 Barrett's esophagus without dysplasia

== ENCOUNTER 2022-07-07 20:43 | Emergency (ER) | payer BC, OTHER ==
[~2022-07-07] VITALS: Ht 160 cm; Wt 89.1 kg
[2022-07-07] MEDS ORDERED: OMEG12003 PO (20:53)
[2022-07-07] MEDS ORDERED: VITMTA PO (20:53)
[2022-07-07] MEDS ORDERED: vitamin D3 PO (20:53)
[2022-07-07] MEDS ORDERED: METF500T13 PO (20:53)
[2022-07-07] MEDS ORDERED: OMEP40CA5 PO (20:53)
[2022-07-07 21:46] LABS: BASO # 0.1 10^3/uL (0.0-0.2); BASO % 1.1 % (0.0-1.0); EOS # 0.1 10^3/uL (0.0-0.5); EOS % 1.7 % (0.0-3.0); HEMATOCRIT 41.4 % (36.0-47.0); HEMOGLOBIN 13.8 g/dl (12.0-15.5); LYMPH # 1.7 10^3/uL (1.5-5.0); LYMPH % 22.7 % (24.0-44.0); MEAN CORPUSCULAR HEMOGLOBIN 30.4 pg (27.0-33.0); MEAN CORPUSCULAR HGB CONC 33.3 g/dl (32.0-36.5); MEAN CORPUSCULAR VOLUME 91.2 fl (80.0-96.0); MONO # 0.6 10^3/uL (0.0-0.8); MONO % 8.4 % (2.0-8.0); NEUTROPHILS # 4.8 10^3/uL (1.5-8.5); NEUTROPHILS % 65.7 % (36.0-66.0); PLATELET COUNT, AUTOMATED 386 10^3/uL (150-450); RED BLOOD COUNT 4.54 10^6/uL (4.00-5.40); WHITE BLOOD COUNT 7.3 10^3/uL (4.0-10.0)
[2022-07-07 22:14] LABS: CK-MB VALUE MASS 1.4 NG/ML (<3.6); MB/CK RELATIVE INDEX 1.2 (< OR =4)
[2022-07-07 22:26] LABS: ALBUMIN 3.8 GM/DL (3.2-5.2); ALT/SGPT 94 U/L (12-78); BILIRUBIN,DIRECT < 0.1 MG/DL (0.0-0.2); BILIRUBIN,TOTAL 0.2 MG/DL (0.2-1.0); BLOOD UREA NITROGEN 12 MG/DL (7-18); CALCIUM LEVEL 9.2 MG/DL (8.5-10.1); CARBON DIOXIDE LEVEL 25 MEQ/L (21-32); CHLORIDE LEVEL 106 MEQ/L (98-107); CREATININE FOR GFR 0.81 MG/DL (0.55-1.30); GLOMERULAR FILTRATION RATE > 60.0 (>51); GLUCOSE, FASTING 164 MG/DL (70-100); LIPASE 114 U/L (73-393); SODIUM LEVEL 137 MEQ/L (136-145); THYROID STIMULATING HORMONE 0.728 uIU/ML (0.358-3.740); TOTAL PROTEIN 7.5 GM/DL (6.4-8.2)
[2022-07-07] MEDS ORDERED: ISOVUE-370 76% 100ML VIAL As Ordered ONE (23:17)
[2022-07-07 23:24] LABS: CK-MB VALUE MASS 1.2 NG/ML (<3.6); MB/CK RELATIVE INDEX 1.12 (< OR =4)
[2022-07-08 00:30] VITALS: BP 138/78
== END 2022-07-08 01:05 | disposition home or self-care (01) ==
LOC: M ED 20:43
DX: R07.89 Other chest pain (principal); B34.8 Other viral infections of unspecified site; R74.01 Elevation of levels of liver transaminase levels; I45.19 Other right bundle-branch block; K76.0 Fatty (change of) liver, not elsewhere classified; I51.7 Cardiomegaly; N20.0 Calculus of kidney; Z88.5 Allergy status to narcotic agent
CPT/HCPCS: 71045; 71275; 74177; 76705; 80048; 80076; 82550; 82553; 83690; 84443; 84484; 85025; 87486; 87581; 87633; 87798; 93005; 93041; 94760; 99285; Q9967

== ENCOUNTER → 2022-11-09 | Outpatient (CLI) | payer OTHER ==
[~2022-11-09] MED LIST: METF500T13 PO; OMEG12003 PO; OMEP40CA5 PO; VITMTA PO; vitamin D3 PO
== END ==
LOC: M RAD 11:44
PROVIDERS: ATTEND Student in an Organized Health Care Education/Training Program
DX: E04.2 Nontoxic multinodular goiter (principal)

== ENCOUNTER → 2024-09-05 | Outpatient (CLI) | payer OTHER | LOC: M RAD 07:51 | PROVIDERS: ATTEND Student in an Organized Health Care Education/Training Program | DX: E11.65 Type 2 diabetes mellitus with hyperglycemia (principal); E04.2 Nontoxic multinodular goiter ==